=== PATIENT | male | born 1955 | race Caucasian/White ===

== ENCOUNTER → 2017-12-13 | Outpatient (REF) | payer BC ==
[2017-12-13 13:03] LABS: IMMUNOGLOBULIN G 924 MG/DL (681-1648); IMMUNOGLOBULIN M 68.4 MG/DL (40-230); TOTAL PROTEIN 7.3 GM/DL (6.4-8.2)
[2017-12-14 13:59] LABS: ALBUMIN % 61.4 % (55.8-66.1); ALPHA-1-GLOBULIN % 3.4 % (2.9-4.9); ALPHA-2-GLOBULINS % 8.5 % (7.1-11.8)
[2017-12-14 14:00] LABS: ALBUMIN 4.48 GM/DL (3.29-5.55); ALPHA-1-GLOBULINS 0.25 GM/DL (0.17-0.41); ALPHA-2-GLOBULINS 0.62 GM/DL (0.42-0.99); BETA-1-GLOBULINS 0.47 GM/DL (0.28-0.60); BETA-1-GLOBULINS % 6.4 % (4.7-7.2); BETA-2-GLOBULINS 0.47 GM/DL (0.19-0.55); BETA-2-GLOBULINS % 6.4 % (3.2-6.5); GAMMA GLOBULIN % 13.9 % (11.1-18.8); GAMMA GLOBULINS 1.01 GM/DL (0.65-1.58)
== END ==
LOC: M LAB REF 12:04
DX: R22.0 Localized swelling, mass and lump, head (principal)

== ENCOUNTER → 2017-12-21 | Outpatient (REF) | payer BC ==
[2017-12-21 12:56] LABS: BASO # 0.1 10^3/uL (0.0-0.2); BASO % 0.7 % (0.0-1.0); EOS # 0.2 10^3/uL (0.0-0.50); EOS % 1.8 % (0.0-3.0); HEMATOCRIT 42.1 % (42.0-52.0); HEMOGLOBIN 15.3 g/dl (14.0-18.0); IMMATURE GRANULOCYTE % 0.8 % (0-3.0); LYMPH # 2.2 10^3/uL (1.5-4.5); LYMPH % 23.1 % (24.0-44.0); MEAN CORPUSCULAR HEMOGLOBIN 34.9 pg (27.0-33.0); MEAN CORPUSCULAR HGB CONC 36.3 g/dl (32.0-36.5); MEAN CORPUSCULAR VOLUME 96.1 fl (80.0-96.0); MONO # 0.7 10^3/uL (0.0-0.8); MONO % 7.1 % (0.0-5.0); NEUTROPHILS # 6.4 10^3/uL (1.8-7.7); NEUTROPHILS % 66.5 % (36.0-66.0); PLATELET COUNT, AUTOMATED 213 10^3/uL (150-450); RED BLOOD COUNT 4.38 10^6/uL (4.30-6.10); RED CELL DISTRIBUTION WIDTH 11.9 % (11.5-14.5); WHITE BLOOD COUNT 9.6 10^3/uL (4.0-10.0)
[2017-12-21 13:34] LABS: ANION GAP 10 MEQ/L (8-16); BLOOD UREA NITROGEN 11 MG/DL (7-18); CALCIUM LEVEL 9.3 MG/DL (8.8-10.2); CARBON DIOXIDE LEVEL 28 MEQ/L (21-32); CHLORIDE LEVEL 103 MEQ/L (98-107); CREATININE FOR GFR 0.88 MG/DL (0.70-1.30); GLOMERULAR FILTRATION RATE > 60.0 (>49); GLUCOSE, FASTING 98 MG/DL (70-100); POTASSIUM SERUM 4.1 MEQ/L (3.5-5.1); SODIUM LEVEL 141 MEQ/L (136-145)
== END ==
LOC: M LABDRAW1 11:51
DX: Z01.812 Encounter for preprocedural laboratory examination (principal); G57.61 Lesion of plantar nerve, right lower limb; M79.671 Pain in right foot
CPT/HCPCS: 80048

== ENCOUNTER 2017-12-30 09:41 | Day surgery (SDC) | payer BC ==
[2017-12-30] MEDS: LR 1,000 ML IV (10:00)
[2017-12-30] MEDS: BUPIVACAINE HCL 0.5% 30 ML VIAL As Ordered (12:00)
[2017-12-30] MEDS: LIDOCAINE 2% MDV 20 ML VIAL As Ordered (12:00)
[2017-12-30] MEDS ORDERED: fentaNYL 100 MCG/2 ML INJECTION (J3010) As Ordered (12:10)
[2017-12-30] MEDS ORDERED: MIDAZOLAM INJ 2 MG/2 ML VIAL (J2250) As Ordered (12:10)
[2017-12-30] MEDS ORDERED: LIDOCAINE 2% INJ 100 MG/5 ML SDV (FOR ANES.) As Ordered (12:11)
[2017-12-30] MEDS ORDERED: PROPOFOL 200 MG/20 ML VIAL As Ordered ×3 (12:11)
[2017-12-30] MEDS: dexameTHASONE 4 MG/ML 1ML VIAL (J1100) As Ordered (12:16)
[2017-12-30] MEDS: BACITRACIN PWD 50,000 UNITS VIAL As Ordered (12:16)
[2017-12-30] MEDS: NEOSPORIN GU IRRIG 20 ML VIAL As Ordered (12:32)
[2017-12-30] MEDS ORDERED: ONDANSETRON 4MG/2ML VIAL (J2405) IV (13:00)
[2017-12-30] MEDS ORDERED: METOCLOPRAMIDE INJ 10MG/2ML VIAL (J2765) IV (13:00)
[2017-12-30] MEDS ORDERED: PERCOCET 5MG/325MG TAB PO (13:00)
[2017-12-30] MEDS ORDERED: fentaNYL 100 MCG/2 ML INJECTION (J3010) IV (13:00)
[2017-12-30] MEDS ORDERED: LR 1,000 ML IV (13:00)
== END 2017-12-30 13:55 | disposition home or self-care (01) ==
LOC: M SDC 09:41
DX: G57.61 Lesion of plantar nerve, right lower limb (principal); M79.671 Pain in right foot
CPT/HCPCS: 28080

== ENCOUNTER 2018-08-16 09:41 | Day surgery (SDC) | payer BC ==
[2018-08-16] MEDS: NS 1,000 ML IV (07:30)
[2018-08-16] MEDS ORDERED: LIDOCAINE 2% INJ 100 MG/5 ML SDV (FOR ANES.) As Ordered (10:41)
[2018-08-16] MEDS ORDERED: PROPOFOL 200 MG/20 ML VIAL As Ordered ×2 (10:41→12:02)
== END 2018-08-16 12:44 | disposition home or self-care (01) ==
LOC: M OPP 09:41
DX: K64.0 First degree hemorrhoids (principal); K63.5 Polyp of colon; Z79.899 Other long term (current) drug therapy
CPT/HCPCS: 45385

== ENCOUNTER 2019-07-29 19:12 | Emergency (ER) | payer BC ==
[~2019-07-29] VITALS: Ht 177.8 cm; Wt 109.1 kg
[~2019-07-29 19:12] MED LIST: AMBI5TAB PO; MELO15TA28 PO
[2019-07-29] MEDS ORDERED: ACET-683 PO (19:28)
[2019-07-29] MEDS ORDERED: METOCLOPRAMIDE INJ 10MG/2ML VIAL (J2765) IV ONE (20:00)
[2019-07-29] MEDS ORDERED: diphenhydrAMINE INJ 50MG/ML VIAL (J1200) IV STA (20:00)
[2019-07-29] MEDS ORDERED: NS 1,000 ML IV ONE (20:00)
[2019-07-29 20:14] LABS: BASO # 0.1 10^3/uL (0.0-0.2); BASO % 0.8 % (0.0-1.0); EOS # 0.2 10^3/uL (0.0-0.5); EOS % 2.1 % (0.0-3.0); HEMATOCRIT 44.7 % (42.0-52.0); HEMOGLOBIN 16.6 g/dl (13.5-17.5); LYMPH # 2.3 10^3/uL (1.5-5.0); MEAN CORPUSCULAR HEMOGLOBIN 34.9 pg (27.0-33.0); MEAN CORPUSCULAR HGB CONC 37.1 g/dl (32.0-36.5); MEAN CORPUSCULAR VOLUME 93.9 fl (80.0-96.0); MONO # 0.5 10^3/uL (0.0-0.8); MONO % 5.2 % (0.0-5.0); NEUTROPHILS # 6.4 10^3/uL (1.5-8.5); NEUTROPHILS % 67.6 % (36.0-66.0); PLATELET COUNT, AUTOMATED 193 10^3/uL (150-450); RED BLOOD COUNT 4.76 10^6/uL (4.30-6.10); WHITE BLOOD COUNT 9.4 10^3/uL (4.0-10.0)
--- NOTE | 2019-07-29 20:19 | REPVR ---
PROCEDURE INFORMATION: Exam: CT Head Without Contrast Exam date and time: 07/29/2019 7:27 PM Clinical history: 63 years old, male; Pain; Headache; Additional info: Severe headache TECHNIQUE: Imaging protocol: Computed tomography of the head without contrast. Radiation optimization: All CT scans at this facility use at least one of these dose optimization techniques: automated exposure control; mA and/or kV adjustment per patient size (includes targeted exams where dose is matched to clinical indication); or iterative reconstruction. COMPARISON: No relevant prior studies available. FINDINGS: Brain: Diffuse mild cerebral age related volume loss. Mild patchy low attenuation in the white matter compatible with mild chronic small vessel ischemic disease. No midline shift, mass, fluid collection, or evidence of hemorrhage. Ventricles: Ventricular enlargement proportional to volume loss. Bones/joints: Unremarkable. No acute fracture. Sinuses: Visualized sinuses are unremarkable. No fluid levels. Mastoid air cells: Visualized mastoid air cells are well aerated. Soft tissues: Unremarkable. IMPRESSION: Mild involutional changes, no acute intracranial abnormality. Electronically signed by: Derrick Arita On 07/29/2019 20:19:27 PM
[2019-07-29 20:31] LABS: ACETAMINOPHEN LEVEL < 2.0 UG/ML (10.0-30.0); ALBUMIN 3.8 GM/DL (3.2-5.2); ALT/SGPT 65 U/L (12-78); BILIRUBIN,DIRECT 0.2 MG/DL (0.0-0.2); BILIRUBIN,TOTAL 0.8 MG/DL (0.2-1.0); BLOOD UREA NITROGEN 15 MG/DL (7-18); CALCIUM LEVEL 8.4 MG/DL (8.8-10.2); CARBON DIOXIDE LEVEL 26 MEQ/L (21-32); CHLORIDE LEVEL 107 MEQ/L (98-107); CK-MB VALUE MASS 3.1 NG/ML (<3.6); CPK CREATINE PHOSPHOKINASE 594 U/L (39-308); CREATININE FOR GFR 0.96 MG/DL (0.70-1.30); ETHYL ALCOHOL (ETHANOL) < 0.003 % (0.000-0.010); GLOMERULAR FILTRATION RATE > 60.0 (>49); GLUCOSE, FASTING 129 MG/DL (70-100); MAGNESIUM LEVEL 2.1 MG/DL (1.8-2.4); MB/CK RELATIVE INDEX 0.52 (< OR =4); POTASSIUM SERUM 3.4 MEQ/L (3.5-5.1); SALICYLATE LEVEL < 1.7 MG/DL (5.0-30.0); SODIUM LEVEL 141 MEQ/L (136-145); TOTAL PROTEIN 7.3 GM/DL (6.4-8.2); TROPONIN I < 0.02 NG/ML (< 0.10)
[2019-07-29] MEDS ORDERED: KETOROLAC 30 MG/ML VIAL (J1885) IV ONE (20:45)
[2019-07-29 22:45] VITALS: BP 172/93
[2019-07-29] MEDS ORDERED: REGL10TA6 PO (22:45)
--- NOTE | 2019-07-30 05:44 | ECGEPIP ---
[facility] - ED Test Date: 2019-07-29 Pat Name: KENDALL MARTINEZ Department: Room: - Gender: Male Home Health Scheduler: : 1955 Requested By: CLYDE NEGRETE Order Number: [id number] Reading MD: Terrell Brewster Measurements Intervals Robinson Rate: 63 P: 44 HI: 108 QRS: -13 QRSD: 92 T: 43 QT: 421 QTc: 433 Interpretive Statements SINUS RHYTHM WITH SHORT HI INTERVAL NONSPECIFIC T-WAVE ABNORMALITY BASELINE ARTIFACT AFFECTS INTERPRETATION SIMILAR TO 08/10/17 Electronically Signed on 07-30-2019 5:44:24 EDT by Terrell Brewster
--- NOTE | 2019-07-30 17:21 | REP ---
Clinical: Altered mental status . Comparison: None . Findings: The mediastinum and cardiac silhouette are stable and within normal limits for portable technique. The lung tee are clear without acute consolidation, effusion, or pneumothorax. Skeletal structures are intact. Impression: No acute cardiopulmonary process appreciated. Electronically Signed by Warren Jay MD 07/30/2019 05:12 P
== END 2019-07-29 23:15 | disposition home or self-care (01) ==
LOC: M ED 19:12
DX: G43.909 Migraine, unspecified, not intractable, without status migrainosus (principal); M62.82 Rhabdomyolysis
CPT/HCPCS: 70450; 71045; 80048; 80076; 82550; 82553; 83735; 84443; 84484; 85025; 93005; 93041; 94760; 96361; 96374; 96375; 99285; G0480; J1200; J1885; J2765

== ENCOUNTER → 2019-08-08 | Outpatient (CLI) | payer BC ==
[~2019-08-08] MED LIST changes: +ACET-683 PO; +PROHANCE 279.3MG/ML 15ML VIAL (A9576) As Ordered ONE; +PROHANCE 279.3MG/ML 5ML VIAL (A9576) As Ordered ONE; +REGL10TA6 PO
--- NOTE | 2019-08-08 15:42 | REP ---
MRI brain: 08/08/2019. Indication: Vertigo. Comparison: None. Technique: Multiplanar short and long TR sequences of the brain were obtained including post-gadolinium imaging. 20 ml IV ProHance were administered. Findings: There are no areas of restricted diffusion or pathologic gadolinium enhancement. There is no intracranial mass effect or hydrocephalous. Minimal diffuse volume loss is noted. The large intracranial flow voids are present. There are a few small foci of elevated CT prolongation throughout the cerebral hemisphere white matter which are within normal limits for a patient of this age. Impression: No acute intracranial process. Electronically Signed by Justin Roldan DO 08/08/2019 03:33 P
--- NOTE | 2019-08-08 16:06 | REP ---
Intracranial MRA: 08/08/2019. Indication: Vertigo. New new Comparison: None. Technique: 3-D [id number] imaging of the intracranial circulation was performed with rotational 3-D images provided. Findings: There is no intracranial high-grade stenosis, vessel occlusion, aneurysm or AVM. The vertebral arteries are essentially codominant. Impression: No high-grade stenosis or vessel occlusion. Electronically Signed by Justin Roldan DO 08/08/2019 03:57 P
== END ==
LOC: M RAD 13:04
PROVIDERS: ATTEND Internal Medicine
DX: R42 Dizziness and giddiness (principal); R26.81 Unsteadiness on feet
CPT/HCPCS: 70544; 70553; A9576

== ENCOUNTER → 2019-11-07 | Outpatient (REF) | payer BC ==
[~2019-11-07] MED LIST changes: -PROHANCE 279.3MG/ML 15ML VIAL (A9576) As Ordered ONE; -PROHANCE 279.3MG/ML 5ML VIAL (A9576) As Ordered ONE
[2019-11-07 15:59] LABS: BASO # 0.1 10^3/uL (0.0-0.2); BASO % 0.8 % (0.0-1.0); EOS # 0.2 10^3/uL (0.0-0.5); EOS % 1.7 % (0.0-3.0); HEMATOCRIT 46.6 % (42.0-52.0); HEMOGLOBIN 16.6 g/dl (13.5-17.5); LYMPH # 3.1 10^3/uL (1.5-5.0); LYMPH % 29.5 % (24.0-44.0); MEAN CORPUSCULAR HEMOGLOBIN 34.5 pg (27.0-33.0); MEAN CORPUSCULAR HGB CONC 35.6 g/dl (32.0-36.5); MEAN CORPUSCULAR VOLUME 96.9 fl (80.0-96.0); MONO # 0.7 10^3/uL (0.0-0.8); MONO % 6.5 % (0.0-5.0); NEUTROPHILS # 6.3 10^3/uL (1.5-8.5); NEUTROPHILS % 60.3 % (36.0-66.0); PLATELET COUNT, AUTOMATED 215 10^3/uL (150-450); RED BLOOD COUNT 4.81 10^6/uL (4.30-6.10); WHITE BLOOD COUNT 10.5 10^3/uL (4.0-10.0)
[2019-11-07 16:02] LABS: CREATININE FOR GFR 0.98 MG/DL (0.70-1.30); GLOMERULAR FILTRATION RATE > 60.0 (>49); RHEUMATOID FACTOR QUANT < 10.0 IU/ML (<15.0)
[2019-11-07 16:32] LABS: ERYTHROCYTE SEDIMENTATION RATE 3 mm/hr (0-20)
[2019-11-10 00:07] LABS: ANTI DOUBLE STRAND-DNA AB 1 IU/mL (0-9); ANTINUCLEAR ANTIBODIES DIRECT Positive (Negative); Lyme Disease IgG/IgM Antibodie <0.91 ISR (0.00-0.90); Lyme Disease IgM Ab Quantitati <0.80 index (0.00-0.79); SJOGREN'S ANTI SS-A <0.2 AI (0.0-0.9); SJOGREN'S ANTI SS-B <0.2 AI (0.0-0.9); SMITH ANTIBODIES <0.2 AI (0.0-0.9)
== END ==
LOC: M LABDRAW1 15:28
PROVIDERS: ATTEND Orthopaedic Surgery
DX: M65.322 Trigger finger, left index finger (principal)

== ENCOUNTER → 2019-11-17 | Outpatient (CLI) | payer BC ==
--- NOTE | 2019-11-20 08:40 | REP ---
MRI right thumb without contrast: History: Rule out ligament injury. Right hand pain. The patient reports pain in the thumb. No comparison radiographs. Technique: Axial, coronal and sagittal imaging planes were utilized. T1 and T2-weighted scans were obtained in the usual fashion with and without fat saturation. MRI findings: Cortical and medullary bone signal intensity are normal in the first metacarpal and proximal and distal phalanges on T1 and T2-weighted scans. There is moderate to advanced osteoarthritis at the MCP joint with minimal spurring at the IP joint. There is also minimal spurring at the DETENTION joint of the thumb. There appears to be some fragmented spurring at the MCP joint with diffuse joint space narrowing. There is no evidence of tendinopathy or collateral ligament disruption. No vascular abnormality is seen. No soft tissue mass or cyst is observed. 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 Electronically Signed by Demetri Morel MD 11/20/2019 07:55 P
== END ==
LOC: M RAD 09:57
PROVIDERS: ATTEND Orthopaedic Surgery
DX: M25.541 Pain in joints of right hand (principal); M19.041 Primary osteoarthritis, right hand; M77.9 Enthesopathy, unspecified

== ENCOUNTER → 2019-12-13 | Outpatient (CLI) | payer BC | LOC: M OUTALCOH 07:58 | PROVIDERS: ATTEND Psychiatry & Neurology Addiction Medicine | DX: Z13.39 Encounter for screening examination for other mental health and behavioral disorders (principal); F10.20 Alcohol dependence, uncomplicated ==

== ENCOUNTER → 2020-01-08 | Outpatient (RCR) | payer BC | LOC: M OUTALCOH 12-18 08:33 | PROVIDERS: ATTEND Psychiatry & Neurology Addiction Medicine | DX: F10.20 Alcohol dependence, uncomplicated (principal) ==

== ENCOUNTER 2020-02-06 13:54 | Outpatient (RCR) | payer BC | END 2020-02-07 | LOC: M OUTALCOH 13:54 | PROVIDERS: ATTEND Psychiatry & Neurology Addiction Medicine | DX: F10.20 Alcohol dependence, uncomplicated (principal) ==

== ENCOUNTER 2020-03-05 14:15 | Outpatient (RCR) | payer BC | END 2020-03-09 | LOC: M OUTALCOH 14:15 | PROVIDERS: ATTEND Psychiatry & Neurology Addiction Medicine | DX: F10.20 Alcohol dependence, uncomplicated (principal) ==

== ENCOUNTER → 2020-03-21 | Outpatient (CLI) | payer BC ==
--- NOTE | 2020-03-21 14:02 | REP ---
REASON FOR EXAM: Cough. COMPARISON: 07/29/2019 a portable exam. FINDINGS: The superior mediastinal structures are midline. The cardiac silhouette is unremarkable in size, shape, and position. The diaphragmatic surfaces of the lungs are regular, and the costophrenic angles are clear. The pulmonary tee are clear. The imaged osseous structures are intact. IMPRESSION: There is no acute cardiopulmonary disease. No significant change compared to the prior exam. Electronically Signed by Glenn Martinez DO 03/21/2020 03:06 P
== END ==
LOC: M WUC 11:32
PROVIDERS: ATTEND Internal Medicine
DX: R05 Cough (principal)

== ENCOUNTER 2020-04-07 08:00 | Outpatient (RCR) | payer BC | END 2020-04-08 | LOC: M OUTALCOH 08:00 | PROVIDERS: ATTEND Psychiatry & Neurology Addiction Medicine | DX: F10.20 Alcohol dependence, uncomplicated (principal) ==

== ENCOUNTER 2020-05-05 16:00 | Outpatient (RCR) | payer BC | END 2020-05-09 | LOC: M OUTALCOH 16:00 | PROVIDERS: ATTEND Psychiatry & Neurology Addiction Medicine | DX: F10.20 Alcohol dependence, uncomplicated (principal) ==

== ENCOUNTER → 2020-06-09 | Outpatient (RCR) | payer BC ==
[~2020-06-09] MED LIST changes: +GABA-1171 PO; +TAMS1CAP17 PO
== END ==
LOC: M OUTALCOH 05-12 08:00
PROVIDERS: ATTEND Psychiatry & Neurology Addiction Medicine
DX: F10.20 Alcohol dependence, uncomplicated (principal)

== ENCOUNTER 2020-07-07 08:00 | Outpatient (RCR) | payer BC ==
[~2020-07-07 08:00] MED LIST changes: -GABA-1171 PO; -TAMS1CAP17 PO
== END 2020-07-09 ==
LOC: M OUTALCOH 08:00
PROVIDERS: ATTEND Psychiatry & Neurology Addiction Medicine
DX: F10.20 Alcohol dependence, uncomplicated (principal)

== ENCOUNTER 2020-07-28 08:00 | Outpatient (RCR) | payer BC ==
[2020-08-01] MEDS ORDERED: GABA-1171 PO (13:53)
[2020-08-01] MEDS ORDERED: TAMS1CAP17 PO (13:53)
== END 2020-08-09 ==
LOC: M OUTALCOH 08:00
PROVIDERS: ATTEND Psychiatry & Neurology Addiction Medicine
DX: F10.20 Alcohol dependence, uncomplicated (principal)

== ENCOUNTER → 2020-07-30 | Outpatient (CLI) | payer BC ==
[~2020-07-30] MED LIST changes: +GABA-1171 PO; +TAMS1CAP17 PO
[2020-07-30 11:17] LABS: BASO % 0.5 % (0.0-1.0); EOS # 0.2 10^3/uL (0.0-0.5); EOS % 3.1 % (0.0-3.0); HEMOGLOBIN 14.7 g/dl (13.5-17.5); LYMPH # 2.3 10^3/uL (1.5-5.0); LYMPH % 30.3 % (24.0-44.0); MEAN CORPUSCULAR HEMOGLOBIN 30.2 pg (27.0-33.0); MEAN CORPUSCULAR HGB CONC 34.2 g/dl (32.0-36.5); MEAN CORPUSCULAR VOLUME 88.3 fl (80.0-96.0); MONO # 0.4 10^3/uL (0.0-0.8); MONO % 5.9 % (0.0-5.0); NEUTROPHILS # 4.5 10^3/uL (1.5-8.5); NEUTROPHILS % 59.7 % (36.0-66.0); PLATELET COUNT, AUTOMATED 222 10^3/uL (150-450); RED BLOOD COUNT 4.87 10^6/uL (4.30-6.10); WHITE BLOOD COUNT 7.5 10^3/uL (4.0-10.0)
[2020-07-30 11:47] LABS: BLOOD UREA NITROGEN 13 MG/DL (7-18); CALCIUM LEVEL 9.6 MG/DL (8.8-10.2); CARBON DIOXIDE LEVEL 26 MEQ/L (21-32); CHLORIDE LEVEL 107 MEQ/L (98-107); CREATININE FOR GFR 0.92 MG/DL (0.70-1.30); GLOMERULAR FILTRATION RATE > 60.0 (>49); GLUCOSE, FASTING 110 MG/DL (70-100); POTASSIUM SERUM 4.1 MEQ/L (3.5-5.1); SODIUM LEVEL 139 MEQ/L (136-145)
== END ==
LOC: M LAB 09:13
PROVIDERS: ATTEND Podiatrist
DX: M20.41 Other hammer toe(s) (acquired), right foot (principal)

== ENCOUNTER → 2020-08-03 | Outpatient (CLI) | payer BC | LOC: M LABSMTC 09:25 | PROVIDERS: ATTEND Anesthesiology | DX: Z01.812 Encounter for preprocedural laboratory examination (principal); Z20.828 Contact with and (suspected) exposure to other viral communicable diseases | CPT/HCPCS: C9803; U0003 ==

== ENCOUNTER 2020-08-08 09:09 | Day surgery (SDC) | payer BC ==
[~2020-08-08] VITALS: Ht 177.8 cm; Wt 97.5 kg
[~2020-08-08 09:09] MED LIST changes: +LIDOCAINE 1% MDV 20ML VIAL SQ PRN; +LIDOCAINE 2% 100MG/5ML SDV (FOR ANES.) As Ordered ONE; +LR 1,000 ML IV ONE; +MIDAZOLAM INJ 2MG/2ML VIAL (J2250 PER 1MG) As Ordered ONE; +ONDANSETRON 4MG/2ML VIAL As Ordered ONE; +ceFAZolin SOD 2 GM in IV 1 EA IV ONE; +fentaNYL 100 MCG/2 ML INJECTION (J3010) As Ordered ONE; +propofoL 200 MG/20 ML VIAL As Ordered ONE
[2020-08-08] MEDS ORDERED: LIDOCAINE 2% MDV 20ML VIAL As Ordered ONE (10:30)
[2020-08-08] MEDS ORDERED: BUPIVACAINE HCL 0.5% 10ML VIAL As Ordered ONE (10:30)
[2020-08-08] MEDS ORDERED: dexameTHASONE 4 MG/ML 1ML VIAL (J1100 PER 1MG) As Ordered ONE (10:30)
[2020-08-08] MEDS ORDERED: BACITRACIN PWD 50,000 UNITS VIAL As Ordered ONE (10:30)
[2020-08-08] MEDS ORDERED: NEOSPORIN GU IRRIG 20 ML VIAL As Ordered ONE (10:30)
[2020-08-08] MEDS ORDERED: propofoL 200 MG/20 ML VIAL As Ordered ONE (11:53)
--- NOTE | 2020-08-08 12:42 | REP ---
INDICATION: S/P PROXIMAL INTERPHALANGEAL JOINT ARTHROSCOPY. COMPARISON: None. FINDINGS: There has been previous bunionectomy and 1st metatarsal derotational osteotomy. Derotational osteotomy is also seen involving the 2nd metatarsal. There is K-wire fixation of the 2nd digit with excision of the distal metaphysis of the proximal phalanx of the 2nd digit. Neither of the screws breach the joint space. Alignment is near anatomical. IMPRESSION: Postoperative changes as described above. <Electronically signed by Glenn Martinez > 08/08/20 [id number]
[2020-08-08 12:50] VITALS: BP 123/72
--- NOTE | 2020-08-12 15:19 | RO ---
DATE OF OPERATION: 08/08/2020 PREOPERATIVE DIAGNOSIS: Unstable plantar plate, 2nd metatarsophalangeal joint right foot. POSTOPERATIVE DIAGNOSIS: Unstable plantar plate, 2nd metatarsophalangeal joint right foot. PROCEDURE PERFORMED: 1. Proximal interphalangeal joint arthroplasty with external wire fixation 0.045 x1 2nd toe right foot. 2. Shortening 2nd metatarsal osteotomy and internal screw fixation 2.0 x 13 mm right foot. 3. Repair of plantar plate 2nd metatarsophalangeal joint right foot. SURGEON: Mayo Guo DPM CLEANING SUPERVISOR: None. ANESTHESIA: Local, MAC. IRRIGATION: Bacitracin, Neomycin, and Polymyxin B solution. HEMOSTASIS: Ankle pneumatic tourniquet at 225 mmHg for 59 minutes. HARDWARE UTILIZED: Arthrex Snap-Off 2.0 x 13 mm screw. DESCRIPTION OF OPERATION: On 08/08/2020 this 64-year-old male who was taken from hospital room to operating room and placed on the operating table in supine position. Following induction of IV sedation and local regional anesthesia the right lower extremity was prepped and draped in usual aseptic manner. Attention was directed to the patients 2nd toe. There was noted to be a hammertoe deformity present of the 2nd toe as well as unstable plantar plate of the 2nd metatarsophalangeal joint. At this time a curvilinear incision was placed from the midshaft of the 2nd metatarsal, curving around the 2nd metatarsophalangeal joint ending at the proximal interphalangeal joint of the 2nd toe. The incision was deepened through subcutaneous tissues and all crossing venous tributaries were identified and underscored, clamped, cut, ligated, and electrocoagulated as necessary. Transverse tenotomy and capsulotomy was performed at the level of the proximal interphalangeal joint and the extensor expansion jauregui was released along the 2nd metatarsophalangeal joint. Transverse capsulotomy was performed of level of proximal interphalangeal joint and then medial and lateral collateral ligaments were sharply dissected free from the head of the proximal phalanx. Utilizing a power saw an osteotomy was performed just proximal to the articular cartilage of the proximal phalanx and the cartilage was also resected off the base of the middle phalanx. The wound was flushed with copious amount of dilute Bacitracin, Neomycin, Polymyxin B solution. Attention was directed to the patients 2nd toe where transverse tenotomy and capsulotomy were performed from level of the 2nd metatarsophalangeal joint. Plantar plate was released, Inspection of the plantar plate revealed partial tear through the lateral aspect of the 2nd metatarsophalangeal joint plantar plate. This plate was then completely excised and freed for reattachment to the base of the proximal phalanx. Utilizing a file the plantar aspect of the proximal phalanx was scuffed to allow adhesion of the plantar plate. Utilizing a Scorpion needle reach lift truck driver the plantar plate had two passes with #2 FiberWire. Utilizing a 1.6 mm wire tunnels were created through the proximal phalanx. An osteotomy was then performed at the 2nd metatarsal paralleling the plantar surface of the foot. The 2nd metatarsal was shortened allowing complete exposure now to the plantar plate where plantar plate could be completely freed to allow attachment. The 4 mm of dorsal bone was then excised and the 2nd metatarsal was shortened and then fixated with 2.0 x 13 mm Snap-Off screw with good alignment of the 2nd metatarsal. The toe was then plantarflexed and the suture was retrieved through the osseous tunnels and the toe was sutured in plantarflexed position to allow tightening of the plantar plate. This was then cut. The wound was flushed with copious amounts of dilute Bacitracin, Neomycin, and Polymyxin B solution. The capsule was coapted and maintained with 2-0 Monocryl in simple interrupted type fashion. Subcutaneous tissues were coapted and maintained utilizing 3-0 Monocryl in simple interrupted type fashion. Skin incisions were coapted and maintained using 4-0 Prolene in simple interrupted type fashion. Following the completion well proximal to the surgical site 4 mg dexamethasone sodium phosphate was instilled along the proximal aspect of the foot. Attention was directed toward bandaging. A sterile compressive bandage was applied consisting of Adaptic, 4 x 4's, 4 x 4 splint, Kenny and Kerlix and Coban. The toe was maintained in a plantarflexed position. Ankle pneumatic tourniquet was rapidly deflated and instantaneous capillary filling time was noted to digits 1-5 of the patient's right foot. The patient, having apparently tolerated the surgical procedure well, was taken from the OR to the recovery room for further monitoring by the anesthesia department. Postoperative instructions were given upon discharge. IZAIAH
== END 2020-08-08 12:58 | disposition home or self-care (01) ==
LOC: M SDC 09:09
PROVIDERS: ATTEND Podiatrist
DX: M20.41 Other hammer toe(s) (acquired), right foot (principal); M20.5X1 Other deformities of toe(s) (acquired), right foot; M77.41 Metatarsalgia, right foot; M79.671 Pain in right foot; N40.0 Benign prostatic hyperplasia without lower urinary tract symptoms; Z79.899 Other long term (current) drug therapy
CPT/HCPCS: 28285; 28308; 28313; 73630; 88300; C1713; J0690; J1100; J2250; J2405; J3010

== ENCOUNTER 2020-09-01 08:00 | Outpatient (RCR) | payer BC ==
[~2020-09-01 08:00] MED LIST changes: -LIDOCAINE 1% MDV 20ML VIAL SQ PRN; -LIDOCAINE 2% 100MG/5ML SDV (FOR ANES.) As Ordered ONE; -LR 1,000 ML IV ONE; -MIDAZOLAM INJ 2MG/2ML VIAL (J2250 PER 1MG) As Ordered ONE; -ONDANSETRON 4MG/2ML VIAL As Ordered ONE; -ceFAZolin SOD 2 GM in IV 1 EA IV ONE; -fentaNYL 100 MCG/2 ML INJECTION (J3010) As Ordered ONE; -propofoL 200 MG/20 ML VIAL As Ordered ONE
== END 2020-09-08 ==
LOC: M OUTALCOH 08:00
PROVIDERS: ATTEND Psychiatry & Neurology Addiction Medicine
DX: F10.20 Alcohol dependence, uncomplicated (principal)

== ENCOUNTER 2020-09-29 08:00 | Outpatient (RCR) | payer BC | END 2020-10-09 | LOC: M OUTALCOH 08:00 | PROVIDERS: ATTEND Psychiatry & Neurology Addiction Medicine | DX: F10.20 Alcohol dependence, uncomplicated (principal) ==

== ENCOUNTER 2020-10-27 08:00 | Outpatient (RCR) | payer BC | END 2020-11-09 | LOC: M OUTALCOH 08:00 | PROVIDERS: ATTEND Psychiatry & Neurology Addiction Medicine | DX: F10.20 Alcohol dependence, uncomplicated (principal) ==

== ENCOUNTER → 2020-11-13 | Outpatient (CLI) | payer BC ==
[~2020-11-13] MED LIST changes: +ISOVUE-370 76% 100ML VIAL As Ordered ONE
--- NOTE | 2020-11-13 10:43 | REPVR ---
PROCEDURE INFORMATION: Exam: CT Neck With Contrast Exam date and time: 11/13/2020 10:15 AM Age: 65 years old Clinical indication: Condition or disease; Other: Benign neoplasm of lower jaw bone; Prior surgery; Surgery date: 6+ months; Additional info: Benign neoplasm of lower jaw bone/ labs 1st TECHNIQUE: Imaging protocol: Computed tomography images of the neck with intravenous contrast. Radiation optimization: All CT scans at this facility use at least one of these dose optimization techniques: automated exposure control; mA and/or kV adjustment per patient size (includes targeted exams where dose is matched to clinical indication); or iterative reconstruction. Contrast material: ISOVUE 370; Contrast volume: 75 ml; Contrast route: INTRAVENOUS (IV); COMPARISON: No relevant prior studies available. FINDINGS: Paranasal sinuses: A small amount of mucous membrane thickening seen anteriorly within the right maxillary sinus. Nasopharynx: Unremarkable. Oropharynx: Unremarkable. No significant tonsillar enlargement. Hypopharynx: Unremarkable. Larynx: Unremarkable. Normal epiglottis. Retropharyngeal space: Unremarkable. Submandibular/Parotid glands: Normal. Glands are normal in size. Thyroid: Normal. No enlarged or calcified nodules. Lymph nodes: Subcentimeter lymph nodes are identified not enlarged per size criteria. Trachea: Visualized trachea is unremarkable. Lungs: Unremarkable as visualized. Bones/joints: Unremarkable. No acute fracture. Soft tissues: There is a defect noted involving the outer cortex of the left side of the mandible measuring 19 x 7 mm. There is no mass seen in this region. The there are droplets of air noted within the postoperative bed. The patient had surgery per the technologist on the jaw. IMPRESSION: Postoperative left side of the mandible with soft tissue air in the postoperative bed. Electronically signed by: Nicola Arias On 11/13/2020 10:43:20 AM
[2020-11-13 10:49] LABS: BLOOD UREA NITROGEN 14 MG/DL (7-18); CREATININE FOR GFR 1.06 MG/DL (0.70-1.30); GLOMERULAR FILTRATION RATE > 60.0 (>49)
== END ==
LOC: M LAB 09:31
DX: D16.5 Benign neoplasm of lower jaw bone (principal); Z98.890 Other specified postprocedural states
CPT/HCPCS: 36415; 70491; 82565; 84520; Q9967

== ENCOUNTER 2020-12-01 08:00 | Outpatient (RCR) | payer BC ==
[~2020-12-01 08:00] MED LIST changes: -ISOVUE-370 76% 100ML VIAL As Ordered ONE
== END 2020-12-07 ==
LOC: M OUTALCOH 08:00
PROVIDERS: ATTEND Psychiatry & Neurology Psychiatry
DX: F10.20 Alcohol dependence, uncomplicated (principal)

== ENCOUNTER 2021-01-05 13:00 | Outpatient (RCR) | payer BC | END 2021-01-07 | LOC: M OUTALCOH 13:00 | PROVIDERS: ATTEND Psychiatry & Neurology Psychiatry | DX: F10.20 Alcohol dependence, uncomplicated (principal) ==

== ENCOUNTER 2021-02-09 08:01 | Outpatient (RCR) | payer BC | END 2021-03-09 | LOC: M OUTALCOH 08:01 | PROVIDERS: ATTEND Psychiatry & Neurology Psychiatry | DX: F10.20 Alcohol dependence, uncomplicated (principal) ==

== ENCOUNTER 2021-03-16 14:57 | Outpatient (RCR) | payer BC | END 2021-04-08 | LOC: M OUTALCOH 14:57 | PROVIDERS: ATTEND Psychiatry & Neurology Psychiatry | DX: F10.20 Alcohol dependence, uncomplicated (principal) ==

== ENCOUNTER → 2021-04-15 | Outpatient (REF) | payer BC ==
[2021-04-15 17:23] LABS: APPEARANCE, URINE CLEAR (CLEAR); BACTERIA, URINE AUTO NEGATIVE (NEGATIVE); BILIRUBIN, URINE AUTO NEGATIVE (NEGATIVE); BLOOD, URINE BLOOD NEGATIVE (NEGATIVE); COLOR, URINE YELLOW (YELLOW); GLUCOSE, URINE (UA) AUTO NEGATIVE (NEGATIVE); KETONE, URINE AUTO NEGATIVE (NEGATIVE); LEUKOCYTE ESTERASE, URINE AUTO NEGATIVE (NEGATIVE); NITRITE, URINE AUTO NEGATIVE (NEGATIVE); PROTEIN, URINE AUTO NEGATIVE (NEGATIVE); RBC, URINE AUTO 0 /HPF (0-3); SPECIFIC GRAVITY URINE AUTO 1.006 (1.002-1.035); SQUAMOUS EPITHELIAL CELL UR AU 0 /HPF (0-6); UROBILINOGEN, URINE AUTO 0.2 mg/dL (0.0-2.0); WBC, URINE AUTO 0 /HPF (0-3)
== END ==
LOC: M SMT 17:04
PROVIDERS: ATTEND Nurse Practitioner Family
DX: R35.1 Nocturia (principal)

== ENCOUNTER 2021-04-20 08:00 | Outpatient (RCR) | payer BC | END 2021-05-09 | LOC: M OUTALCOH 08:00 | PROVIDERS: ATTEND Psychiatry & Neurology Psychiatry | DX: F10.20 Alcohol dependence, uncomplicated (principal) ==

== ENCOUNTER 2021-05-25 15:06 | Outpatient (RCR) | payer BC | END 2021-06-09 | LOC: M OUTALCOH 15:06 | PROVIDERS: ATTEND Psychiatry & Neurology Psychiatry | DX: F10.20 Alcohol dependence, uncomplicated (principal) ==

== ENCOUNTER 2021-07-01 13:30 | Outpatient (RCR) | payer BC | END 2021-07-09 | LOC: M OUTALCOH 13:30 | PROVIDERS: ATTEND Psychiatry & Neurology Psychiatry | DX: F10.20 Alcohol dependence, uncomplicated (principal) ==

== ENCOUNTER → 2021-07-22 | Outpatient (REF) | payer BC | LOC: M LAB REF 11:17 | PROVIDERS: ATTEND Internal Medicine | DX: N40.1 Benign prostatic hyperplasia with lower urinary tract symptoms (principal) ==

== ENCOUNTER → 2021-07-24 | Outpatient (CLI) | payer BC | LOC: M LABSMTC 10:45 | PROVIDERS: ATTEND Anesthesiology | DX: Z01.812 Encounter for preprocedural laboratory examination (principal); Z20.822 Contact with and (suspected) exposure to COVID-19 ==

== ENCOUNTER → 2021-07-24 | Outpatient (CLI) | payer BC ==
--- NOTE | 2021-07-24 11:34 | REP ---
INDICATION: BLADDER TUMOR COMPARISON: 03/21/2020 TECHNIQUE: PA and lateral. FINDINGS: The mediastinum and cardiac silhouette are normal. The lung tee are clear and without acute consolidation, effusion, or pneumothorax. The skeletal structures are intact and normal. IMPRESSION: No acute cardiopulmonary process. <Electronically signed by Warren Jay > 07/24/21 [id number]
== END ==
LOC: M WUC 11:01
PROVIDERS: ATTEND Urology
DX: D49.4 Neoplasm of unspecified behavior of bladder (principal)

== ENCOUNTER 2021-07-29 09:34 | Day surgery (SDC) | payer BC ==
[~2021-07-29] VITALS: Ht 177.8 cm; Wt 93.8 kg
[~2021-07-29 09:34] MED LIST changes: +CIPROFLOXACIN 400 MG in IV 1 EA IV ONE; +LIDOCAINE 2% 100MG/5ML SDV (FOR ANES.) As Ordered ONE; +LR 1,000 ML IV ONE; +MIDAZOLAM INJ 2MG/2ML VIAL (J2250 PER 1MG) As Ordered ONE; +ROCURONIUM BROMIDE 50 MG/5 ML VIAL As Ordered ONE; +fentaNYL 100 MCG/2 ML INJECTION (J3010) As Ordered ONE; +propofoL 200 MG/20 ML VIAL As Ordered ONE
--- OUTSIDE RECORDS SUMMARY | 2021-07-29 09:42 | CCD ---
Author Author [facility] Organization [facility] Address Unknown Phone Unavailable Care Team Providers Care Child Monitor Name Role Phone BeckwithShane montoya Unavailable PROBLEMS Type Condition ICD9-CM Code [id number] Code Onset Dates Condition S tatus W/U Status Risk SNOMED Code Notes Problem Benign prostatic hyperplasia without lower urina ry tract symptoms N40.0 Active confirmed 499414528 Problem Benign prostatic hyperplasia with lower urinary tract symptoms N40.1 Active confirmed 6181797540069 Problem Prostate cancer screening Z12.5 Active confirmed 864127226 Problem Nocturia R35.1 Active confirmed [id number] ALLERGIES No Known Allergies ENCOUNTERS from 1955 to 2021-06-30 Encounter Location Date Provider Diagnosis [facility] [address] [phone] [place] [address] Jun, Shane Beckwith Bladder tumor D49.4 ; Nocturia R35.1 and Benign prostatic hyperplasia with lower urinary tract symptoms N40.1 IMMUNIZATIONS No Information SOCIAL HISTORY Tobacco Use: Social History Observation Description Date Details (start date - stop date) Sex Assigned At : Social History Observation Description Sex Assigned At Unknown Language: Question Answer Notes Languages spoken: Tajik Samaritan: Question Answer Notes Samaritan No anabaptist beliefs that would impact health care. Alcohol Screening: Question Answer Notes Did you have a drink containing alcohol in the past year? Ye s Points 3 Interpretation Negative How often did you have six or more drinks on one occas ion in the past year? Never (0 points) How many drinks did you have on a typica l day when you were drinking in the past year? 3 or 4 (1 point) How often did you have a drink containing alcohol in t he past year? Two to four times a month (2 points) Tobacco Use: Question Answer Notes Are you a: never smoker REASON FOR REFERRAL No Information VITAL SIGNS Weight 205 lbs Jun, Height 70 in Jun, BMI 29.41 kg/m2 Jun, Heart Rate 60 /min Jun, Respiratory Rate 18 /min Jun, Temperature 96.1 degrees Fahrenheit Jun, Oximetry 98 Jun, Blood pressure systolic 138 mm Hg Jun, Blood pressure diastolic 68 mm Hg Jun, MEDICATIONS Medication SIG (Take, Route, Frequency, Duration) Notes Start Da te End Date Status Flomax 0.4 MG 1 capsule Orally Once a day for 90 days 2020 Active Bactrim DS 800-160 MG 1 tablet Orally as directed-1 hour prior t o cystoscopy May, Active PROCEDURES from 1955 to 2021-06-30 Procedure Date Ordered Result Body Site Med: Lidocaine Jelly 2% 6ml Intravesically (Glydo) 2021-06-26 N/A RESULTS No Results REASON FOR VISIT nocturia MEDICAL (GENERAL) HISTORY Type Description Date Medical History Arthritis Medical History Skin Cancer Medical History Neurological Problems Surgical History knee surgery Surgical History periodic orthoscopes Surgical History foot surgery Surgical History cystoscopy 06/26/21 Goals Section No Information Health Concerns No Information MEDICAL EQUIPMENT No Information MENTAL STATUS No Information FUNCTIONAL STATUS No Information ASSESSMENTS Encounter Date Diagnosis Assessment Notes Treatment Notes Treatm ent Clinical Notes Jun, Bladder tumor (ICD-10 - D49.4) Jun, Nocturia (ICD-10 - R35.1) Jun, Benign prostatic hyperplasia with lower urinary tract symptoms (ICD-10 - N40.1) PLAN OF TREATMENT Medication Medication Name Sig Start Date Stop Date Flomax 0.4 MG 1 capsule Orally Once a day for 90 days Jun, Treatment Notes Test Name Order Date CBC - Complete Blood Count 2021-06-26 URINE CULTURE 2021-06-26 Basic Metabolic Profile (BMP) 2021-06-26 Electrocardiogram (EKG) 2021-06-26 ADM CHEST 2 VIEW 2021-06-26 Insurance Providers Payer Name Payer Address Payer Phone Insured Name Patient Relati onship to Insured Coverage Start Date Coverage End Date BCBS [place] PPO [phone] [facility] [place] [address] KENDALL MARTINEZ self
--- OUTSIDE RECORDS SUMMARY | 2021-07-29 09:42 | CCD | Continuity of Care Document ---
Author Author [facility] Organization Unknown Address [address] [place] [address] Phone Unavailable Care Team Providers Care Vp Strategy Name Role Phone Marshall Oliva JR, MD AUTM Unavailable Mayo Guo Surya CHIN AUTM [phone] AttCarol yan AUTM [phone] Beau Pink AUTM [phone] Problems Active Problems Provider Date Pure hypercholesterolemia Marshall Oliva MD Onset: 11/26 Pure hyperglyceridemia Marshall Oliva MD Onset: 11/26/19 14 Obesity Marshall Oliva MD Onset: 11/26/2013 Body mass index 30+ - obesity Marshall Oliva MD Onset: 0 11/26/2013 Metabolic syndrome X Marshall Oliva MD Onset: 11/26/2013 Chronic nonalcoholic liver disease Marshall Oliva MD Ons et: 11/26/2013 Nonalcoholic steatohepatitis (Cat) Marshall Oliva MD On set: 06/22/2016 Peripheral venous insufficiency Marshall Oliva MD Onset: 11/15/2018 Social History Type Date Description Comments Sex Unknown ETOH Use Occasionally consumes alcohol Tobacco Use Start: Unknown Patient has never smoked Allergies and adverse reactions Description No Known Drug Allergies Medications Active Medications SIG Qnty Indications Ordering Provide r Date Viagra 25mg Tablets 1 by mouth 30min prior to need 5tabs Marshall Oliva MD 07/24/2019 Medications Administered in Office Medication SIG Qnty Indications Ordering Provider Date Immunization Adminstration,1 Vaccine/Tox oid Injection Marshall Oliva MD 2019 Immunization Adminstration,1 Vaccine/Tox oid Injection Marshall Oliva MD 2018 Immunizations CPT Code Status Date Vaccine Lot # 11968 Given 06/27/2020 Influenza Vaccin e Quadrivalent Preser/Antibiotic Free Im Use [id number] Given 08/02/2019 Influenza Vaccin e Quadrivalent Preser/Antibiotic Free Im Use [id number] 13181 Given 08/31/2010 Influenza Virus Vaccine Vital Signs Date Vital Result Comment 03/13/2021 8:15am BP Systolic 100 mmHg BP Diastolic 68 mmHg Heart Rate 76 /min Height 69.25 inches 5'9.25" Weight 203.00 lb BMI (Body Mass Index) 29.8 kg/m2 08/05/2020 8:41am BP Systolic 138 mmHg BP Diastolic 82 mmHg Heart Rate 74 /min Height 69.25 inches 5'9.25" Weight 219.00 lb O2 % BldC Oximetry 97 % RM Air BMI (Body Mass Index) 32.1 kg/m2 Results Test Acquired Date Facility Test Result H/L Range Note Complete Blood Count 03/13/2021 [facility] Solar Photovoltaic Designer: Dr Marshall Oliva [place], [place] [id number] [phone] WBC 6.9 x10*3/UL 4.1 - 10.9 RBC 4.67 x10*6/UL 4.20 - 6.30 Hemoglobin 14.7 g/dL 12.0 - 18.0 Hematocrit 40.9 % 37.0 - 51.0 MCV 87.6 fL 80.0 - 97.0 MCH 31.5 pg 26.0 - 32.0 MCHC 35.9 g/dL 31.0 - 38.0 RDW 12.3 % 11.6 - 13.7 PLT 215 x10*3/UL 140 - 440 MPV 8.1 FL 7.8 - 11.0 Lymph % 27.8 % 10.0 - 58.5 Mid % 5.4 % 1.7 - 9.3 Neut % 66.8 % 37.0 - 92.0 Lymph # 1.9 x10*3/UL 0.6 - 4.1 Mid # 0.4 x10*3/UL 0.1 - 0.6 Neut # 4.6 x10*3/UL 2.0 - 7.8 A1c 03/13/2021 [facility] , Solar Photovoltaic Designer: [place] [address] [phone] Hba1c 4.9 % <5.7 1 Est Avg Glucose 94 mg/dL 60 - 110 Comprehensive Chem Profile 03/13/2021 [facility], Solar Photovoltaic Designer: [place] [address] [phone] Glucose 104 mg/dL High 74 - 99 2 BUN 15 mg/dL 7 - 18 Creatinine 1.0 mg/dL 0.6 - 1.3 Sodium 145 mEq/L 136 - 145 Potassium 4.3 mEq/L 3.5 - 5.1 Chloride 107 mEq/L 98 - 107 Carbon Dioxide 27 mEq/L 21 - 32 Calcium 9.2 mg/dL 8.5 - 10.1 Alk. Phosphatase 45 mg/dL Low 46 - 116 Total Bilirubin 0.7 mg/dL 0.2 - 1.0 Ast (Sgot) 22 U/L 15 - 37 Alt (SGPT) 34 U/L 12 - 78 Albumin 4.2 g/dL 3.4 - 5.0 Total Protein 7.1 g/dL 6.4 - 8.2 A/G Ratio 1.45 CALC 1.00 - 1.90 GFR >= 60 mL/min >60 GFR >= 60 mL/min >60 3 Lipid Profile 03/13/2021 [facility] [employer] Photovoltaic Designer: [place] [address] [phone] Cholesterol 170 mg/dL 131 - 200 Triglycerides 105 mg/dL 30 - 150 HDL Cholesterol 41 mg/dL 35 - 60 LDL (Calculated) 108 CALC 50 - 159 Laboratory test finding 03/13/2021 [facility], Solar Photovoltaic Designer: [place] [address] [phone] PSA 1.10 ng/mL <4.00 4 1 Lab Result Notes: Pre-Diabetes 5.7 - 6.4 % Diabetes = or > 6.5% 2 100-125 mg/dL PRE-DIABET ES/FASTING >126 mg/dL DIABETES/FASTING 3 CHRONIC KIDNEY DISEASE STAGI NG PER NKF STAGE I & II GFR >= 60 NORMAL TO MILDLY DECREASED STAGE III GFR 30-59 MODERATELY DECREASED STAGE IV GFR 15-29 SEVERELY DECREASED STAGE V GFR <15 VERY LITTLE GFR LEFT ESRD GFR <15 ON DISTRICT FIRE MANAGEMENT OFFICER 4 This assay was performed on the Siemens Dimension EXL using the B- Galactosidase/CPRG methodology and should not be compared interchangeably with other methods. The PSA should not be used alone as a screening test for the presence or absence of malignant disease. Procedures Date Code Description Status 03/13/2021 41727 Est Prevent Med (40-64Yrs) Compl eted 03/13/2021 02896 EKG/Interpretation & Report Comp leted 08/16/2018 [id number] Colonoscopy Completed 06/03/2015 [id number] Colonoscopy Completed 05/17/2014 [id number] Colonoscopy Completed 04/26/2007 [id number] Colonoscopy Completed Medical Devices Description No Information Available Encounters Type Date Location Provider Dx Diagnosis Office Visit 03/13/2021 8:20a [facility] Marshall Oliva MD Z00.01 Encounter for general adult medical exam w abnormal findings R73.09 Other abnormal glucose D48.5 Neoplasm of uncertain behavi or of skin E78.2 Mixed hyperlipidemia Z86.010 Personal history of colonic polyps N32.81 Overactive bladder Z12.5 Encounter for screening for malignant neoplasm of prostate E66.3 Overweight Z68.29 Body mass index [BMI] 29.0-2 9.9, adult Z00.00 Encntr for general adult med ical exam w/o abnormal findings Assessments Date Code Description Provider 03/13/2021 Z00.01 Encounter for genera l adult medical examination with abnormal findings Marshall Oliva MD 03/13/2021 R73.09 Other abnormal glucose Marshall Oliva MD 03/13/2021 D48.5 Neoplasm of uncertain behavior o f skin Marshall Oliva MD 03/13/2021 E78.2 Mixed hyperlipidemia Marshall Oliva MD 03/13/2021 Z86.010 Personal history of colonic poly ps Marshall Oliva MD 03/13/2021 N32.81 Overactive bladder Marshall mao MD 03/13/2021 Z12.5 Encounter for screening for tisha gnant neoplasm of prostate Marshall Oliva MD 03/13/2021 E66.3 Overweight Marshall mora MD 03/13/2021 Z68.29 Body mass index [BMI] 29.0-29.9, adult Marshall Oliva MD 03/13/2021 Z00.00 Encntr for general adult medical exam w/o abnormal findings Marshall Oliva MD Plan of Treatment Future Appointment(s):* 03/16/2022 9:00 am - Marshall Oliva MD at [facility] 03/13/2021 - Marshall Oliva MD* Z00.01 Encounter for general adult medical examination with abnormal findings * R73.09 Other abnormal glucose * D48.5 Neoplasm of uncertain behavior of skin * E78.2 Mixed hyperlipidemia* Comments:* LDL at goal. * Z86.010 Personal history of colonic polyps * N32.81 Overactive bladder * Z12.5 Encounter for screening for malignant neoplasm of prostate * E66.3 Overweight * Z68.29 Body mass index [BMI] 29.0-29.9, adult * Z00.00 Encntr for general adult medical exam w/o abnormal findings Functional Status Description No Information Available Mental Status Description No Information Available Referrals Refer to Dr Reason for Referral Status Appt Date Israel Ingram M.D. CONSULT FOR BPH, OVERACTIVE BLADDER Creat ed [facility] [address] , [facility] [place] [address] [phone]
--- OUTSIDE RECORDS SUMMARY | 2021-07-29 09:42 | CCD ---
Author Author [facility] Organization [facility] Address Unknown Phone Unavailable Care Team Providers Care Ostrich Farmer Name Role Phone Aristeo Moya Unavailable PROBLEMS ALLERGIES No Known Allergies ENCOUNTERS from 1955 to 2021-05-12 IMMUNIZATIONS No Information SOCIAL HISTORY REASON FOR REFERRAL No Information VITAL SIGNS MEDICATIONS PROCEDURES No Information RESULTS No Results REASON FOR VISIT MEDICAL (GENERAL) HISTORY Goals Section Health Concerns MEDICAL EQUIPMENT No Information MENTAL STATUS FUNCTIONAL STATUS ASSESSMENTS No Information PLAN OF TREATMENT Insurance Providers
--- OUTSIDE RECORDS SUMMARY | 2021-07-29 09:42 | CCD ---
Author Author [facility] Organization [facility] Address Unknown Phone Unavailable Care Team Providers Care Trapeze Performer Name Role Phone Shane Beckwith Unavailable PROBLEMS Type Condition ICD9-CM Code [id number] Code Onset Dates Condition S tatus W/U Status Risk SNOMED Code Notes Problem Benign prostatic hyperplasia without lower urina ry tract symptoms N40.0 Active confirmed 458618592 Problem Benign prostatic hyperplasia with lower urinary tract symptoms N40.1 Active confirmed 8571338377121 Problem Prostate cancer screening Z12.5 Active confirmed 137536859 Problem Nocturia R35.1 Active confirmed 795685230 ALLERGIES No Known Allergies ENCOUNTERS from 1955 to 2021-07-03 Encounter Location Date Provider Diagnosis [facility] [address] [phone] [place] [address] Jun, Shane Beckwith Benign prostatic hyperplasia without low er urinary tract symptoms N40.0 and Benign prostatic hyperplasia with lower urinary tract symptoms N40.1 IMMUNIZATIONS No Information SOCIAL HISTORY Tobacco Use: Social History Observation Description Date Details (start date - stop date) Sex Assigned At : Social History Observation Description Sex Assigned At Unknown Language: Question Answer Notes Languages spoken: Hong Konger Hindu: Question Answer Notes Hindu No sabianist beliefs that would impact health care. Alcohol [...] REASON FOR REFERRAL No Information VITAL SIGNS No information MEDICATIONS Medication SIG (Take, Route, Frequency, Duration) Notes Start Da te End Date Status Flomax 0.4 MG 1 capsule Orally Once a day for 90 days 17 S , 2020 Active Flomax 0.4 MG 1 capsule Orally Once a day for 90 days 24 S , 2020 Active Bactrim DS 800-160 MG 1 tablet Orally as directed-1 hour prior t o cystoscopy May, Active PROCEDURES No Information RESULTS No Results REASON FOR VISIT flomax MEDICAL (GENERAL) HISTORY Type Description Date Medical [...] Treatment Notes Treatm ent Clinical Notes Jun, Benign prostatic hyperplasia without lower urinary tract symptoms (ICD-10 - N40.0) Jun, Benign prostatic hyperplasia with lower urinary tract symptoms (ICD-10 - N40.1) PLAN OF TREATMENT Medication Medication Name Sig Start Date Stop Date Flomax 0.4 MG 1 capsule Orally Once a day for 90 days Jun, Flomax 0.4 MG 1 capsule Orally Once a day for 90 days Jun, Next Appt Details Provider Name:Israel Ingram, 01:45:00 PM, [address], , [place], [address], Insurance Providers Payer Name Payer Address Payer Phone Insured Name Patient Relati onship to Insured Coverage Start Date Coverage End Date BCBS [place] PPO [id number] [facility] [place] [address] KENDALL MARTINEZ self
--- OUTSIDE RECORDS SUMMARY | 2021-07-29 09:42 | CCD ---
Author Author [facility] Organization [facility] Address Unknown Phone Unavailable Care Team Providers Care Bulb Grower Name Role Phone Amena Shane Unavailable PROBLEMS Type Condition ICD9-CM Code [id number] Code Onset Dates Condition S tatus W/U Status Risk SNOMED Code Notes Problem Nocturia R35.1 Active confirmed 052416100 Problem Benign prostatic hyperplasia without lower urina ry tract symptoms N40.0 Active confirmed 136965653 Problem Prostate cancer screening Z12.5 Active confirmed 730866360 ALLERGIES No Known Allergies ENCOUNTERS from 1955 to 2021-06-11 Encounter Location Date Provider Diagnosis [facility] [address] [phone] [place] [address] Jun, Shane Amena IMMUNIZATIONS No Information SOCIAL HISTORY Tobacco Use: Social History Observation Description Date Details (start date - stop date) Sex Assigned At : Social History Observation Description Sex Assigned At Unknown Language: Question Answer Notes Languages spoken: Iraqi Nondenominational: Question Answer Notes Nondenominational No buddhist beliefs that would impact health care. Alcohol [...] Notes Start Da te End Date Status Bactrim DS 800-160 MG 1 tablet Orally as directed-1 hour prior t o cystoscopy May, Active PROCEDURES No Information RESULTS No Results REASON FOR VISIT 06/26/2021 appt MEDICAL (GENERAL) HISTORY Type Description Date Medical History Arthritis Medical History Skin Cancer Medical History Neurological Problems Surgical History knee surgery Surgical History periodic orthoscopes Surgical History foot surgery Goals Section No Information Health Concerns No Information MEDICAL EQUIPMENT No Information MENTAL STATUS No Information FUNCTIONAL STATUS No Information ASSESSMENTS No Information PLAN OF TREATMENT Medication Medication Name Sig Start Date Stop Date Bactrim DS 800-160 MG 1 tablet Orally as directed-1 hour rasheed or to cystoscopy May, Next Appt Details Provider Name:Shane Beckwith, 11:00:00 AM, [address], , [place], [address], Insurance Providers Payer Name Payer Address Payer Phone Insured Name Patient Relati onship to Insured Coverage Start Date Coverage End Date BCBS [place] PPO [id number] [facility] [place] [address] KENDALL MARTINEZ self
--- OUTSIDE RECORDS SUMMARY | 2021-07-29 09:42 | CCD ---
Author Author [facility] Organization [facility] Address Unknown Phone Unavailable Care Team Providers Care Electroplater Apprentice Name Role Phone KurtisCarol chance Unavailable PROBLEMS Type Condition ICD9-CM Code [id number] Code Onset Dates Condition S tatus W/U Status Risk SNOMED Code Notes Problem Nocturia R35.1 Active confirmed 790179610 Problem Benign prostatic hyperplasia without lower urina ry tract symptoms N40.0 Active confirmed 084716889 Problem Prostate cancer screening Z12.5 Active confirmed 283331009 ALLERGIES No Known Allergies ENCOUNTERS from 1955 to 2021-06-10 Encounter Location Date Provider Diagnosis [facility] Urology [address] [phone] [place] [address] May, Carol Weathers Nocturia R35.1 and Benign prostatic hype rplasia without lower urinary tract symptoms N40.0 IMMUNIZATIONS No Information SOCIAL HISTORY Tobacco Use: Social History Observation Description Date Details (start date - stop date) Sex Assigned At : Social History Observation Description Sex Assigned At Unknown Language: Question Answer Notes Languages spoken: Thai Rastafari: Question Answer Notes Rastafari No rastafari beliefs that would impact health care. Alcohol [...] No Information VITAL SIGNS Weight 205 lbs May, Weight-kg 92.99 kg May, Height 70 in May, BMI 29.41 kg/m2 May, Heart Rate 65 /min May, Respiratory Rate 18 /min May, Temperature 98.2 degrees Fahrenheit May, Oximetry 97% May, Blood pressure systolic 126 mm Hg May, Blood pressure diastolic 70 mm Hg May, MEDICATIONS Medication SIG (Take, Route, Frequency, Duration) Notes Start Da te End Date Status Bactrim DS 800-160 MG 1 tablet Orally as directed-1 hour prior t o cystoscopy May, Active PROCEDURES from 1955 to 2021-06-10 Procedure Date Ordered Result Body Site uro PVR (Post Voiding Residual) Bladder Scan 2021-06-09 N/A RESULTS No Results REASON FOR VISIT 6 week f/u PSA MEDICAL (GENERAL) HISTORY Type Description Date Medical History Arthritis Medical History Skin Cancer Medical History Neurological Problems Surgical History knee surgery Surgical History periodic orthoscopes Surgical History foot surgery Goals Section No Information Health Concerns No Information MEDICAL EQUIPMENT No Information MENTAL STATUS No Information FUNCTIONAL STATUS No Information ASSESSMENTS Encounter Date Diagnosis Assessment Notes Treatment Notes Treatm ent Clinical Notes May, Nocturia (ICD-10 - R35.1) May, Benign prostatic hyperplasia without lower urinary tract symptoms (ICD-10 - N40.0) PLAN OF TREATMENT Medication Medication Name Sig Start Date Stop Date Bactrim DS 800-160 MG 1 tablet Orally as directed-1 hour rasheed or to cystoscopy May, Next Appt Details cysto Reason: Provider Name:Shane Beckwiht, 11:00:00 AM, [address], , [place], [address], Insurance Providers Payer Name Payer Address Payer Phone Insured Name Patient Relati onship to Insured Coverage Start Date Coverage End Date [place]BS [place] PPO [phone] [facility] [place] [id number] KENDALL MARTINEZ self
--- OUTSIDE RECORDS SUMMARY | 2021-07-29 09:42 | CCD | Continuity of Care Document ---
Author Author [facility] Organization Unknown Address [address] [place] [address] Phone [phone] Care Team Providers Care Enterprise Integration Architect Name Role Phone Marshall Oliva JR, MD AUTM Unavailable Mayo Guo DPM AUTM [phone] AttCarol yan AUTM [phone] Beau Pink AUTM [phone] Problems Active Problems Provider Date Pure hypercholesterolemia [...] CPT Code Status Date Vaccine Lot # [id number] Given 06/27/2020 Influenza Vaccin e Quadrivalent Preser/Antibiotic Free Im Use [id number] 74111 Given 08/02/2019 Influenza Vaccin e Quadrivalent Preser/Antibiotic Free Im Use [id number] 45412 Given 08/31/2010 Influenza Virus Vaccine Vital Signs [...] Date Facility Test Result H/L Range Note Laboratory test finding 07/22/2021 [facility] [address] [place], [place] [address] [phone] Urine Culture <pending> Complete Blood Count 07/22/2021 [facility] B And B Gang Worker: [place] [address] [phone] WBC 7.1 x10*3/UL 4.1 - 10.9 RBC 4.58 x10*6/UL 4.20 - 6.30 Hemoglobin 14.4 g/dL 12.0 - 18.0 Hematocrit 40.2 % 37.0 - 51.0 MCV 87.7 fL 80.0 - 97.0 MCH 31.4 pg 26.0 - 32.0 MCHC 35.8 g/dL 31.0 - 38.0 RDW 12.6 % 11.6 - 13.7 PLT 199 x10*3/UL 140 - 440 MPV 7.6 FL Low 7.8 - 11.0 Lymph % 25.8 % 10.0 - 58.5 Mid % 5.3 % 1.7 - 9.3 Neut % 68.9 % 37.0 - 92.0 Lymph # 1.8 x10*3/UL 0.6 - 4.1 Mid # 0.4 x10*3/UL 0.1 - 0.6 Neut # 4.9 x10*3/UL 2.0 - 7.8 Basic Metabolic Panel 07/22/2021 [facility] [employer] And B Gang Worker: [place] [address] [phone] Glucose 97 mg/dL 74 - 99 1 BUN 11 mg/dL 7 - 18 Creatinine 1.0 mg/dL 0.6 - 1.3 Sodium 141 mEq/L 136 - 145 Potassium 4.1 mEq/L 3.5 - 5.1 Chloride 104 mEq/L 98 - 107 Carbon Dioxide 31 mEq/L 21 - 32 Calcium 9.0 mg/dL 8.5 - 10.1 GFR >= 60 mL/min >60 GFR >= 60 mL/min >60 2 Complete Blood Count 03/13/2021 [facility] [employer] And B Gang Worker: [place] [address] [phone] WBC 6.9 x10*3/UL 4.1 - 10.9 RBC [...] 4.6 x10*3/UL 2.0 - 7.8 A1c 03/13/2021 [facility] [employer] And B Gang Worker: [place] [address] [phone] Hba1c 4.9 % <5.7 3 Est Avg Glucose 94 mg/dL 60 - 110 Comprehensive Chem Profile 03/13/2021 [facility] [employer] And B Gang Worker: [place] [address] [phone] Glucose 104 mg/dL High 74 - 99 4 BUN 15 mg/dL 7 - 18 Creatinine [...] mL/min >60 GFR >= 60 mL/min >60 5 Lipid Profile 03/13/2021 [facility] [employer] B Gang Worker: [place] [address] [phone] Cholesterol 170 mg/dL 131 - 200 Triglycerides 105 mg/dL 30 - 150 HDL Cholesterol 41 mg/dL 35 - 60 LDL (Calculated) 108 CALC 50 - 159 Laboratory test finding 03/13/2021 [facility] [employer] And B Gang Worker: [place] [address] [phone] PSA 1.10 ng/mL <4.00 6 1 100-125 mg/dL PRE-DIABET ES/FASTING >126 mg/dL DIABETES/FASTING 2 CHRONIC KIDNEY DISEASE STAGI NG PER NKF STAGE I & II GFR >= 60 NORMAL TO MILDLY DECREASED STAGE III GFR 30-59 MODERATELY DECREASED STAGE IV GFR 15-29 SEVERELY DECREASED STAGE V GFR <15 VERY LITTLE GFR LEFT ESRD GFR <15 ON ELECTRICIAN ASSISTANT 3 Lab Result Notes: Pre-Diabetes 5.7 - 6.4 % Diabetes = or > 6.5% 4 100-125 mg/dL PRE-DIABET ES/FASTING >126 mg/dL DIABETES/FASTING 5 CHRONIC KIDNEY DISEASE STAGI NG PER NKF STAGE I & II GFR >= 60 NORMAL TO MILDLY DECREASED STAGE III GFR 30-59 MODERATELY DECREASED STAGE IV GFR 15-29 SEVERELY DECREASED STAGE V GFR <15 VERY LITTLE GFR LEFT ESRD GFR <15 ON ELECTRICIAN ASSISTANT 6 This assay was performed on the Siemens Dimension EXL using the B- Galactosidase/CPRG methodology and should not be compared interchangeably with other methods. The PSA should not be used alone as a screening test for the presence or absence of malignant disease. Procedures Date Code Description Status 03/13/2021 53075 Est Prevent Med (40-64Yrs) Compl eted 03/13/2021 42054 EKG/Interpretation & Report Comp leted 08/16/2018 [id number] Colonoscopy Completed 06/03/2015 [id number] Colonoscopy Completed 05/17/2014 [id number] Colonoscopy Completed 04/26/2007 [id number] Colonoscopy Completed Medical Devices Description No Information Available Encounters Type Date Location Provider Dx Diagnosis Office Visit 03/13/2021 8:20a [facility] Marshall Oliva MD Z00.01 Encounter [...] 9:00 am - Marshall Oliva MD at [facility] 03/13/2021 - Marshall Oliva MD* [...] CONSULT FOR BPH, OVERACTIVE BLADDER Creat ed [facility] [address], [place] [address] [phone]
--- OUTSIDE RECORDS SUMMARY | 2021-07-29 09:43 | CCD ---
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 Name Role Phone Shannon, Melida CALL OUT OPERATOR Unavailable Unavailable Shannon, Melida CALL OUT OPERATOR Unavailable Unavailable Shannon, Melida CALL OUT OPERATOR Unavailable Unavailable Shannon, Melida CALL OUT OPERATOR Unavailable Unavailable Shannon, Melida CALL OUT OPERATOR Unavailable Unavailable Shannon, Melida CALL OUT OPERATOR Unavailable Unavailable Shannon, Melida CALL OUT OPERATOR Unavailable Unavailable Shannon, Melida CALL OUT OPERATOR Unavailable Unavailable Shannon, Melida CALL OUT OPERATOR Unavailable Unavailable Shannon, Melida CALL OUT OPERATOR Unavailable Unavailable Shannon, Melida CALL OUT OPERATOR Unavailable Unavailable Shannon, Melida CALL OUT OPERATOR Unavailable Unavailable Shannon, Melida CALL OUT OPERATOR Unavailable Unavailable LePine, M Charleen GINGER FARMER Unavailable Unavailable LePine, M Charleen GINGER FARMER Unavailable Unavailable Le[place]ine, M Charleen GINGER FARMER Unavailable Unavailable Le[place]ine, M Charleen GINGER FARMER Unavailable Unavailable [place], M Charleen GINGER FARMER Unavailable Unavailable Le[place]ine, M Charleen GINGER FARMER Unavailable Unavailable [place], M Charleen GINGER FARMER Unavailable Unavailable [place], M Charleen GINGER FARMER Unavailable Unavailable [place], M Charleen GINGER FARMER Unavailable Unavailable [place], M Charleen GINGER FARMER Unavailable Unavailable Le[place], M Charleen GINGER FARMER Unavailable Unavailable Le[place], M Charleen GINGER FARMER Unavailable Unavailable Le[place]ine, M Charleen GINGER FARMER Unavailable Unavailable Le[place]ine, M Charleen GINGER FARMER Unavailable Unavailable Le[place]ine, M Charleen GINGER FARMER Unavailable Unavailable Le[place]ine, M Charleen GINGER FARMER Unavailable Unavailable Le[place], M Charleen GINGER FARMER Unavailable Unavailable Le[place]ine, M Charleen GINGER FARMER Unavailable Unavailable Le[place]ine, M Charleen GINGER FARMER Unavailable Unavailable Le[place]ine, M Charleen GINGER FARMER Unavailable Unavailable Le[place]ine, M Charleen GINGER FARMER Unavailable Unavailable Le[place]ine, M Charleen GINGER FARMER Unavailable Unavailable Le[place]ine, M Charleen GINGER FARMER Unavailable Unavailable Le[place], M Charleen GINGER FARMER Unavailable Unavailable LePine, M Charleen GINGER FARMER Unavailable Unavailable LePine, M Charleen GINGER FARMER Unavailable Unavailable LePine, M Charleen GINGER FARMER Unavailable Unavailable LePine, M Charleen GINGER FARMER Unavailable Unavailable LePine, M Charleen GINGER FARMER Unavailable Unavailable LePine, M Charleen GINGER FARMER Unavailable Unavailable LePine, M Charleen GINGER FARMER Unavailable Unavailable LePine, M Charleen GINGER FARMER Unavailable Unavailable LePine, M Charleen GINGER FARMER Unavailable Unavailable LePine, M Charleen GINGER FARMER Unavailable Unavailable LePine, M Charleen GINGER FARMER Unavailable Unavailable LePine, M Charleen GINGER FARMER Unavailable Unavailable LePine, M Charleen GINGER FARMER Unavailable Unavailable LePine, M Charleen GINGER FARMER Unavailable Unavailable LePine, M Charleen GINGER FARMER Unavailable Unavailable LePine, M Charleen GINGER FARMER Unavailable Unavailable LePine, M Charleen GINGER FARMER Unavailable Unavailable LePine, M Charleen GINGER FARMER Unavailable Unavailable LePine, M Charleen GINGER FARMER Unavailable Unavailable LePine, M Charleen GINGER FARMER Unavailable Unavailable LePine, M Charleen GINGER FARMER Unavailable Unavailable LePine, M Charleen GINGER FARMER Unavailable Unavailable LePine, M Charleen GINGER FARMER Unavailable Unavailable LePine, M Charleen GINGER FARMER Unavailable Unavailable LePine, M Charleen GINGER FARMER Unavailable Unavailable LePine, M Charleen GINGER FARMER Unavailable Unavailable LePine, M Charleen GINGER FARMER Unavailable Unavailable LePine, M Charleen GINGER FARMER Unavailable Unavailable LePine, M Charleen GINGER FARMER Unavailable Unavailable LePine, M Charleen GINGER FARMER Unavailable Unavailable LePine, M Charleen GINGER FARMER Unavailable Unavailable Le[place]ine, M Charleen GINGER FARMER Unavailable Unavailable Barry Oliva MD Unavailable Unavailable Barry Oliva MD Unavailable Unavailable Barry Oliva MD Unavailable Unavailable Barry Oliva MD Unavailable Unavailable Barry Oliva MD Unavailable Unavailable Barry Oliva MD Unavailable Unavailable Barry Oliva MD Unavailable Unavailable Barry Oliva MD Unavailable Unavailable Barry Oliva MD Unavailable Unavailable Barry Oliva MD Unavailable Unavailable Barry Oliva MD Unavailable Unavailable Barry Oliva MD Unavailable Unavailable Barry Oliva MD Unavailable Unavailable Barry Oliva MD Unavailable Unavailable Barry Oliva MD Unavailable Unavailable Barry Oliva MD Unavailable Unavailable Barry Oliva MD Unavailable Unavailable Barry Oliva MD Unavailable Unavailable Barry Oliva MD Unavailable Unavailable Barry Oliva MD Unavailable Unavailable Barry Oliva MD Unavailable Unavailable Barry Oliva MD Unavailable Unavailable [place] MD Unavailable Unavailable PjBarry MD Unavailable Unavailable PjBarry MD Unavailable Unavailable PjBarry MD Unavailable Unavailable PjBarry MD Unavailable Unavailable PjBarry MD Unavailable Unavailable [place] MD Unavailable Unavailable [place] MD Unavailable Unavailable [place] MD Unavailable Unavailable [place] MD Unavailable Unavailable [place] MD Unavailable Unavailable PjBarry MD Unavailable Unavailable [place] MD Unavailable Unavailable PjBarry MD Unavailable Unavailable [place] MD Unavailable Unavailable PjBarry MD Unavailable Unavailable [place] MD Unavailable Unavailable PjBarry MD Unavailable Unavailable PjBarry MD Unavailable Unavailable PjBarry MD Unavailable Unavailable PjBarry MD Unavailable Unavailable [place] MD Unavailable Unavailable PjBarry MD Unavailable Unavailable PjBarry MD Unavailable Unavailable [place] MD Unavailable Unavailable PjBarry MD Unavailable Unavailable [place] MD Unavailable Unavailable PjBarry MD Unavailable Unavailable PjBarry MD Unavailable Unavailable [place] MD Unavailable Unavailable [place] MD Unavailable Unavailable PjBarry MD Unavailable Unavailable [place] MD Unavailable Unavailable PjBarry MD Unavailable Unavailable PjBarry MD Unavailable Unavailable [place] salmeron MD Unavailable Unavailable [place] MD Unavailable Unavailable [place] MD Unavailable Unavailable [place] MD Unavailable Unavailable [place] MD Unavailable Unavailable [place] MD Unavailable Unavailable [place] MD Unavailable Unavailable [place] salmeron MD Unavailable Unavailable PjBarry MD Unavailable Unavailable [place] MD Unavailable Unavailable PjBarry MD Unavailable Unavailable PjBarry MD Unavailable Unavailable PjBarry MD Unavailable Unavailable [place] MD Unavailable Unavailable PjBarry MD Unavailable Unavailable [place] MD Unavailable Unavailable [place] MD Unavailable Unavailable [place] MD Unavailable Unavailable [place] MD Unavailable Unavailable [place], F Olivares MD Unavailable Unavailable [place], Barry Olivares MD Unavailable Unavailable Pj, F Marshall MD Unavailable Unavailable Pj, F Marshall MD Unavailable Unavailable [place], F Marshall MD Unavailable Unavailable Pj, F Marshall MD Unavailable Unavailable [place], F Marshall MD Unavailable Unavailable Pj, F Marshall MD Unavailable Unavailable [place], F Marshall MD Unavailable Unavailable Pj, Barry Olivares MD Unavailable Unavailable RING, K KAREL PA Unavailable Unavailable RING, K KAREL PA Unavailable Unavailable RING, K KAREL PA Unavailable Unavailable RING, K KAREL PA Unavailable Unavailable RING, K KAREL PA Unavailable Unavailable RING, K KAREL PA Unavailable Unavailable RING, K KAREL PA Unavailable Unavailable RING, K KAREL PA Unavailable Unavailable RING, K KAREL PA Unavailable Unavailable RING, K KAREL PA Unavailable Unavailable RING, K KAREL PA Unavailable Unavailable RING, K KAREL PA Unavailable Unavailable RING, K KAREL PA Unavailable Unavailable RING, K KAREL PA Unavailable Unavailable RING, K KAREL PA Unavailable Unavailable RING, K KAREL PA Unavailable Unavailable RING, K KAREL PA Unavailable Unavailable RING, K KAREL PA Unavailable Unavailable RING, K KAREL PA Unavailable Unavailable RING, K KAREL PA Unavailable Unavailable RING, K KAREL PA Unavailable Unavailable Re-disclosure Warning The records that you are about to access may contain information from federally-assisted alcohol or drug abuse programs. If such information is present, then the following federally mandated warning applies: This information has been disclosed to you from records protected by federal confidentiality rules (42 CFR part 2). The federal rules prohibit you from making any further disclosure of this information unless further disclosure is expressly permitted by the written consent of the person to whom it pertains or as otherwise permitted by 42 CFR part 2. A general authorization for the release of medical or other information is NOT sufficient for this purpose. The Federal rules restrict any use of the information to criminally investigate or prosecute any alcohol or drug abuse patient.The records that you are about to access may contain highly sensitive health information, the redisclosure of which is protected by Article 27-F of the [facility] Public Health law. If you continue you may have access to information: Regarding HIV / AIDS; Provided by facilities licensed or operated by the [facility] Office of Mental Health; or Provided by the [facility] Office for People With Developmental Disabilities. If such information is present, then the following [facility] mandated warning applies: This information has been disclosed to you from confidential records which are protected by state law. State law prohibits you from making any further disclosure of this information without the specific written consent of the person to whom it pertains, or as otherwise permitted by law. Any unauthorized further disclosure in violation of state law may result in a fine or shelter sentence or both. A general authorization for the release of medical or other information is NOT sufficient authorization for further disc losure. Family History Family Member Name Family Member Gender Family Member Status Date o f Status Description Data Source(s) Unknown Unknown Problem [facility] Unknown Male Problem [facility] ([facility] ) Unknown Unknown Problem [facility] ([facility]) that, as far as he knows, are basically healthy Unknown Unknown Problem [facility] ([facility] Encounters Encounter Providers Location Date Indications Data Source(s ) Unknown [address] [facility] [id number] 07/03/2021 12:00:00 AM EDT eCW1 ([email or web address] ([facility]) Urology [address] [place] [address] 06/26/2021 12:00:00 AM EDT eCW1 ([email or web address] Unknown [address] [facility] [place] [address] 06/11/2021 12:00:00 AM EDT eCW1 ([email or web address] Outpatient [address] [facility] [id number] 06/09/2021 12:00:00 AM EDT eCW1 ([facility]) Outpatient Attender: Melida mora 04/28/2021 05:00:00 PM EDT MEDENT ([facility]) Outpatient Attender: KAREL Jarrett 04/20/2021 11:15:00 AM EDT MED[facility] ([facility]) Unknown [address] [facility] [id number] 04/16/2021 12:00:00 AM EDT eCW1 ([facility]) [place] [address] [facility] [place] [address] 04/15/2021 12:00:00 AM EDT eCW1 ([facility]) Outpatient Attender: Marshall Kc 0 03/13/2021 08:20:00 AM EDT MEDENT ([facility] ) Outpatient Attender: Charleen Kc 08/05 08:40:00 AM EDT MEDENT ([facility] ) Immunizations Vaccine Date Status Description Data Source(s) COVID-19 VACCINE Moderna 01/29/2021 12:00:00 AM EDT completed [facility] Vaccine Series Complete: YESThis Data wa s Submitted to [facility] Via [employer]. COVID-19 VACCINE Moderna 01/01/2021 12:00:00 AM EDT completed [facility] Vaccine Series Complete: NOThis Data was Submitted to [facility] [employer]. Influenza, injectable, MDCK, preservative free, viviana valent 06/27/2020 03:02:00 PM EDT completed [facility] ([facility]) Medications Medication Brand Name Start Date Product Form Dose Route Admi nistrative Instructions Pharmacy Instructions Status Indications Reaction Description Data Source(s) 0.4 mg 07/03/2021 12:00:00 AM EDT capsule 90 TAKE ONE CAPSULE BY MOUTH EVERY DAY TAKE ONE CAPSULE BY MOUTH EVERY DAY SOLD: 07/03/2021 [facility] Tamsulosin hydrochloride 0.4 MG Oral Capsule [Flomax] Flomax 0.4 MG Flomax 0.4 MG 07/03/2021 12:00:00 AM EDT 1.0 {capsule} active Flomax 0.4 MG eCW1 ([facility]) Tamsulosin hydrochloride 0.4 MG Oral Capsule [Flomax] Flomax 0.4 MG Flomax 0.4 MG 06/26/2021 12:00:00 AM EDT 1.0 {capsule} active Flomax 0.4 MG eCW1 ([facility]) Tamsulosin hydrochloride 0.4 MG Oral Capsule [Flomax] Flomax 0.4 MG Flomax 0.4 MG 06/26/2021 12:00:00 AM EDT 1.0 {capsule} active Flomax 0.4 MG eCW1 ([facility]) Sulfamethoxazole 800 MG / Trimethoprim 1 60 MG Oral Tablet [Bactrim] Bactrim DS 800-160 MG Bactrim DS 800-160 MG 06/09/2021 12:00:00 AM EDT 1.0 {table t} active Bactrim DS 800-160 MG eCW1 ( [facility]) Sulfamethoxazole 800 MG / Trimethoprim 1 60 MG Oral Tablet [Bactrim] Bactrim DS 800-160 MG Bactrim DS 800-160 MG 06/09/2021 12:00:00 AM EDT 1.0 {table t} active Bactrim DS 800-160 MG eCW1 ( [facility]) Sulfamethoxazole 800 MG / Trimethoprim 1 60 MG Oral Tablet [Bactrim] Bactrim DS 800-160 MG Bactrim DS 800-160 MG 06/09/2021 12:00:00 AM EDT 1.0 {table t} active Bactrim DS 800-160 MG eCW1 ( [facility]) 800-160 mg 06/09/2021 12:00:00 AM EDT tablet 1 TAKE ONE TABLET DIRECTED ONE HOUR PRIOR TO CYSTOSCOPY TAKE ONE TABLET DIRECTED ONE HOUR JORDAN OR TO CYSTOSCOPY SOLD: 06/10/2021 [facility] Sulfamethoxazole 800 MG / Trimethoprim 1 60 MG Oral Tablet [Bactrim] Bactrim DS 800-160 MG Bactrim DS 800-160 MG 06/09/2021 12:00:00 AM EDT 1.0 {table t} active Bactrim DS 800-160 MG eCW1 ( [facility]) 0.3-0.1 % 04/20/2021 12:00:00 AM EDT drops,suspension 7 INSTILL 4 DROPS EVERY 12 HOURS IN THE RIGHT EAR FOR 7 DAYS INSTILL 4 DROPS EVERY 12 HOURS IN THE RIGHT EAR FOR 7 DAYS SOLD: 04/20/2021 [facility] Ciprofloxacin 3 MG/ML / Dexamethasone 1 MG/ML Otic [employer] [Ciprodex] Ciprodex 04/20/2021 12:00:00 AM EDT AURICULAR completed MEDENT ([facility]) 10 mg 04/16/2021 12:00:00 AM EDT tablet extended release 24hr 30 TAKE ONE TABLET BY MOUTH EVERY DAY TAKE ONE TABLET BY MOUTH EVERY DAY SOLD: 05/18/2021 [facility] 10 mg 04/16/2021 12:00:00 AM EDT tablet extended release 24hr 30 TAKE ONE TABLET BY MOUTH EVERY DAY TAKE ONE TABLET BY MOUTH EVERY DAY SOLD: 04/17/2021 [facility] 24 HR Oxybutynin chloride 10 MG Extended Release Oral Tablet Oxybutynin Chloride ER 10 MG Oxybutynin Chloride ER 10 MG 04/15/2021 12:00:00 AM EDT 1.0 {tablet} active eCW1 ([facility]) 24 HR Oxybutynin chloride 10 MG Extended Release Oral Tablet Oxybutynin Chloride ER 10 MG Oxybutynin Chloride ER 10 MG 04/15/2021 12:00:00 AM EDT 1.0 {tablet} active Oxybutynin Chloride ER 1 0 MG eCW1 ([facility]) 10 mg 12/03/2020 12:00:00 AM EST tablet extended release 24 hr 30 TAKE ONE TABLET BY MOUTH EVERY DAY TAKE ONE TABLET BY MOUTH EVERY DAY SOLD: 12/05/2020 [facility] 10 mg 12/03/2020 12:00:00 AM EST tablet extended release 24 hr 30 TAKE ONE TABLET BY MOUTH EVERY DAY TAKE ONE TABLET BY MOUTH EVERY DAY SOLD: 01/04/2021 [facility] 24 HR Alfuzosin hydrochloride 10 MG Extended Release O ral Tablet Alfuzosin HCL ER 12/02/2020 12:00:00 AM EST ORAL completed [facility] ([facility]) 0.1 % 08/20/2020 12:00:00 AM EST cream 15 APPLY TO AFFECTED AREA(S) INCISION TWO TIMES A DAY APPLY TO AFFECTED AREA(S) INCISION TWO TIMES A DAY [facility] 5-325 mg 07/30/2020 12:00:00 AM EDT tablet 20 TAKE ONE TABLET BY MOUTH EVERY 6 HOURS FOR POST OP PAIN MAXIMUM DAILY DOSE = FOUR TABLETS TAKE ONE TABLET BY MOUTH EVERY 6 HOURS FOR POST OP PAIN MAXIMUM DAILY DOSE = FOUR TABLETS SOLD: 08/01/2020 [facility] Immunization Adminstration,1 Vaccine/Toxoid 06/27/2020 12:00 :00 AM EDT completed [facility] ([facility]) Medication administered onsite 5-325 mg 06/26/2020 12:00:00 AM EDT tablet 42 TAKE ONE TABLET EVERY 4 TO 6 HOURS NEEDED FOR PAIN, MAXIMUM DAILY DOSE =4 TAKE ONE TABLET EVERY 4 TO 6 HOURS NEEDED FOR PAIN, MAXIMUM DAILY DOSE =4 SOLD: 06/26/2020 [facility] 7.5-325 mg/15 mL 06/17/2020 12:00:00 AM EDT solution 420 TAKE 10 MLS BY MOUTH EVERY 4 TO 6 HOURS NEEDED MAX OF 60 MLS PER DAY TAKE 10 MLS BY MOUTH EVERY 4 TO 6 HOURS NEEDED MAX OF 60 MLS PER DAY SOLD: 06/17/2020 [facility] 2 % 06/07/2020 12:00:00 AM EDT solution 500 USE 5ML EVERY 2 HOURS NEEDED USE 5ML EVERY 2 HOURS NEEDED SOLD: 06/09/2020 [facility] 100 mg 06/06/2020 12:00:00 AM EDT capsule 90 TAKE ONE CAPSULE BY MOUTH THREE TIMES A DAY TAKE ONE CAPSULE BY MOUTH THREE TIMES A DAY SOLD: 06/29/2020 [facility] 100 mg 06/06/2020 12:00:00 AM EDT capsule 90 TAKE ONE CAPSULE BY MOUTH THREE TIMES A DAY TAKE ONE CAPSULE BY MOUTH THREE TIMES A DAY SOLD: 06/06/2020 [facility] 7.5-325 mg/15 mL 06/06/2020 12:00:00 AM EDT solution 420 TAKE TWO TEASPOONFUL (10ML) BY MOUTH EVERY 4 TO 6 HOURS NEEDED MAXIMUM DAILY DOSE = 60ML TAKE TWO TEASPOONFUL (10ML) BY MOUTH RIC RY 4 TO 6 HOURS NEEDED MAXIMUM DAILY DOSE = 60ML SOLD: 06/06/2020 [facility] 7.5-325 mg/15 mL 06/02/2020 12:00:00 AM EDT solution 420 TAKE 2 TEASPOONFUL BY MOUTH EVERY 4 TO 6 HOURS NEEDED MAXIMUM DAILY DOSE = 12 TEASPOONFUL TAKE 2 TEASPOONFUL BY MOUTH EVERY 4 TO 6 HOURS NEEDED MAXIMUM DAILY DOSE = 12 TEASPOONFUL SOLD: 06/02/2020 [facility] 0.4 mg 03/12/2020 12:00:00 AM EDT capsule 90 TAKE 1 CAPSULE BY MOUTH ONCE DAILY 1/2 HOUR AFTER THE SAME MEAL EACH DAY TAKE 1 CAPSULE BY MOUTH ONCE DAILY 1/2 HOUR AFTER THE SAME MEAL EACH DAY SOLD: 06/26/2020 [facility] Insurance Providers Payer name Policy type / Coverage type Policy ID Covered libertarian ID Covered libertarian's relationship to weber Policy Weber Plan Information [facility] [employer] [id number] Self [id number] [facility] [employer] Commercial [id number] Self [id number] BC/BS [facility] [address] Self [employer] [facility] (pr) Medigap Part B [id number] Self [id number] [employer] (pr) Medigap Part B [id number] Self [id number] [employer] (pr) Medigap Part B [id number] Self [id number] [employer] (pr) Medigap Part B [id number] Self [id number] [employer] (pr) Medigap Part B [id number] Self [id number] [employer] [facility] (pr) Medigap Part B [id number] Self [id number] [employer] (pr) Medigap Part B [id number] Self [id number] [facility] ([place] Medigap Part B [id number] Self [id number] [facility] Part B [id number] 2..[id number] Self [id number] [facility] [employer] Part B [id number] Self [id number] [facility] [employer] Part B [id number] 2...[id number] Self [id number] [facility] [employer] Part B [id number] Self [id number] [facility] [employer] Part B [id number] 2...[id number] Self [id number] [facility] [employer] Part B [id number] 2..[id number] Self [id number] [facility] [employer] Part B [id number] 2..[id number] Self [id number] [facility] [employer] Part B [id number] 2..[id number] Self [id number] [facility] [employer] Part B [id number] 2..[id number] Self [id number] [facility] Commercial [id number] Self [id number] [facility] Commercial [id number] Self [place] [employer] [id number] Self [id number] [employer] [place] PPO 302/307 [id number] SP [id number] [facility] Commercial [id number] 2...[id number] Self [id number] [facility] Commercial [id number] 2...[id number] Self [id number] [facility] Commercial [id number] Self [id number] [facility] Commercial [id number] Self [id number] [facility] Commercial [id number] 2..[id number] Self [id number] [facility] Commercial [id number] 2..[id number] Self [id number] [facility] Commercial [id number] 2..[id number] Self [id number] [facility] [employer] [id number] 2...[id number] Self [id number] [place] [employer] [id number] ..[id number] Self [id number] [employer] [place] PPO 302/307 [id number] SP [id number] [employer] [place] PPO 302/307 [id number] SP [id number] [employer] PPO 302/307 [id number] SP [id number] BLUE CROSS BLUE SHIELD-O/P [id number] 18 [id number] [employer] [facility] Part B [id number] ..[id number] Self [id number] [employer] [facility] Part B [id number] ..[id number] Self [id number] [facility] Part B [id number] ..[id number] Self [id number] [employer] [facility] Part B [id number] ..[id number] Self [id number] [facility] [employer] [id number] ..[id number] Self [id number] [employer] [place] PPO 302/307 [id number] SP [id number] [employer] [facility] Part B [id number] ..[id number] Self [id number] [employer] [facility] Part B [id number] Self [id number] [employer] [facility] Part B [id number] Self [id number] [employer] [facility] Part B [id number] Self [id number] [employer] [facility] B [id number] Self [id number] [facility] B [id number] S [id number] Problems, Conditions, and Diagnoses Code Display Name Description Problem Type Effective Dates Data Source(s) N40.1 [id number] Benign prostatic hyp erplasia with lower urinary tract symptoms Problem 06/26/2021 12:00:00 AM EDT eCW1 ([facility]) N40.0 Benign prostatic hypertrophy without out flow obstruction Benign prostatic hyperplasia without lower urinary tract symptoms Problem 06/09 12:00:00 AM EDT eCW1 ([facility]) R35.1 Nocturia Nocturia Problem 04/15/2021 12:00:00 AM ED T eCW1 ([facility]) Z12.5 Screening for malignant neoplasm of prostate Pro state cancer screening Problem 04/15/2021 12:00:00 AM EDT eCW1 ([facility]) Surgeries/Procedures Procedure Description Date Indications Data Source(s) Med: Lidocaine Jelly 2% 6ml Intravesically (Glydo) 06/26/2021 12:00:00 AM EDT eCW1 ([facility]) uro PVR (Post Voiding Residual) Bladder Scan 12:00:00 AM EDT eCW1 ([facility]) Remove Impact Cerumen Irrigati 04/28/2021 12:00:00 AM EDT MEDENT ([facility], [facility]) OFFICE OUTPATIENT VISIT 15 MINUTES 04/28/2021 12:00:00 AM EDT MEDENT ([facility], [facility]) OFFICE OUTPATIENT VISIT 15 MINUTES 04/20/2021 12:00:00 AM EDT MEDENT ([facility], [facility]) uro PVR (Post Voiding Residual) Bladder Scan 12:00:00 AM EDT eCW1 ([facility]) ECG ROUTINE ECG W/LEAST 12 LDS W/I&R 03/13/2021 12:00: 00 AM EDT MEDENT ([facility]) PERIODIC PREVENTIVE MED EST PATIENT 40-64YRS 12:00:00 AM EDT MEDENT ([facility]) Results ID Date Data Source [id number] 07/22/2021 08:54:00 AM EDT MEDENT ([facility]) Name Value Range Interpretation Code Description Data Shannan rce(s) Supporting Document(s) Bacteria identified in Urine by Culture Laboratory test result MEDENT ([facility]) ID Date Data Source [id number] 07/22/2021 08:53:00 AM EDT MEDENT ([facility]) Name Value Range Interpretation Code Description Data Shannan rce(s) Supporting Document(s) Glucose [Mass/volume] in Serum or Plasma 97 mg/dL 74-99 MEDENT ([facility]) 100-125 mg/dL PRE-DIABETES/FASTING >126 mg/dL DIABETES/FASTING Urea nitrogen [Mass/volume] in Serum or Plasma 11 mg/dL 7-18 MEDENT ([facility]) Creatinine 1.0 mg/dL 0.6-1.3 [facility] ([facility] Potassium [Moles/volume] in Serum or Plasma 4.1 meq/L 3.5-5.1 MED[facility] ([facility]) Sodium [Moles/volume] in Serum or Plasma 141 meq/L 136-145 [facility] ([facility]) Chloride [Moles/volume] in Serum or Plasma 104 meq/L 98-107 [facility] ([facility]) Carbon dioxide, total [Moles/volume] in Serum or Plasma 31 meq/L 21 -32 [facility] ([facility]) Calcium [Mass/volume] in Serum or Plasma 9.0 mg/dL 8.5-10.1 MED[facility] ([facility]) Glomerular filtration rate/1.73 sq M pre dicted among non-blacks [Volume Rate/Area] in Serum or Plasma by Creatinine-based formula (MDRD) Laboratory test result MEDENT ([facility] ) Glomerular filtration rate/1.73 sq M pre dicted among blacks [Volume Rate/Area] in Serum or Plasma by Creatinine-based formula (MDRD) Laboratory test result [facility] <content>CHRONIC KIDNEY DISEASE STAGING PER NKF</content>
<content></content>
<content>STAGE I & II GFR >= 60 NORMAL TO MILDLY DECREASED</content>
<content>STAGE III GFR 30-59 MODERATELY DECREASED</content>
<content>STAGE IV GFR 15-29 SEVERELY DECREASED</content>
<content>STAGE V GFR <15 VERY LITTLE GFR LEFT</content>
<content>ESRD GFR <15 ON CLINICAL TRIAL MANAGER</content>
<content></content> ID Date Data Source [id number] 07/22/2021 08:53:00 AM EDT [facility] ([facility] Name Value Range Interpretation Code Description Data Shannan rce(s) Supporting Document(s) Leukocytes [#/volume] in Blood by Automated count 7.1 x10*3/UL 4.1-10 .9 [facility] Erythrocytes [#/volume] in Blood by Automated count 4.58 x10*6/UL 4.2 0-6.30 [facility] Hemoglobin [Mass/volume] in Blood 14.4 g/dL 12.0-18.0 [facility] ([facility]) Hematocrit [Volume Fraction] of Blood by Automated count 40.2 % 3 7.0-51.0 MED[facility] ([facility]) MCV 87.7 fL 80.0-97.0 [facility] ([facility]) MCH 31.4 pg 26.0-32.0 [facility] ([facility]) MCHC 35.8 g/dL 31.0-38.0 [facility] Erythrocyte distribution width [Ratio] by Automated count 12.6 % 11.6-13.7 [facility] ([facility]) Platelets [#/volume] in Blood by Automated count 199 x10*3/UL 140-440 [facility] ([facility]) MPV 7.6 FL 7.8-11.0 [facility] ([facility]) Mid % 5.3 % 1.7-9.3 [facility] Lymph % 25.8 % 10.0-58.5 [facility] Neut % 68.9 % 37.0-92.0 [facility] ([facility]) Lymph # 1.8 x10*3/UL 0.6-4.1 [facility] ([facility]) Mid # 0.4 x10*3/UL 0.1-0.6 [facility] ([facility]) Neut # 4.9 x10*3/UL 2.0-7.8 [facility] ([facility]) ID Date Data Source URINE CULTURE 04/15/2021 12:00:00 AM EDT [facility] ([facility]) Name Value Range Interpretation Code Description Data Shannan rce(s) Supporting Document(s) URINE CULTURE [facility] ([facility]) ID Date Data Source UA URINALYSIS 04/15/2021 12:00:00 AM EDT [facility] ([facility]) Name Value Range Interpretation Code Description Data Shannan rce(s) Supporting Document(s) UA URINALYSIS [facility] ([facility]) ID Date Data Source [id number] 03/13/2021 08:53:00 AM EDT MEDENT ([facility] Name Value Range Interpretation Code Description Data Shannan rce(s) Supporting Document(s) Prostate specific Ag [Mass/volume] in Serum or Plasma 1.10 ng/mL [facility] ([facility] This assay was performed on the [employer] EXL using the B- Galactosidase/CPRG methodology and should not be compared interchangeably with other methods. The PSA should not be used alone as a screening test for the presence or absence of malignant disease. ID Date Data Source [id number] 03/13/2021 08:53:00 AM EDT MEDENT ([facility]) Name Value Range Interpretation Code Description Data Shannan rce(s) Supporting Document(s) Cholesterol [Mass/volume] in Serum or Plasma 170 mg/dL 131-200 [facility] ([facility]) Triglyceride [Mass/volume] in Serum or Plasma 105 mg/dL 30-150 [facility] ([facility]) Cholesterol in HDL [Mass/volume] in Serum or Plasma 41 mg/dL 35-60 [facility] ([facility]) Cholesterol in LDL [Mass/volume] in Serum or Plasma by calcu lation 108 CALC 50-159 [facility] ([facility]) ID Date Data Source [id number] 03/13/2021 08:53:00 AM EDT MED[facility] ([facility]) Name Value Range Interpretation Code Description Data Shannan rce(s) Supporting Document(s) Glucose [Mass/volume] in Serum or Plasma 104 mg/dL 74-99 [facility] ([facility]) 100-125 mg/dL PRE-DIABETES/FASTING >126 mg/dL DIABETES/FASTING Urea nitrogen [Mass/volume] in Serum or Plasma 15 mg/dL 7-18 [facility] ([facility]) Creatinine 1.0 mg/dL 0.6-1.3 [facility] ([facility]) Sodium [Moles/volume] in Serum or Plasma 145 meq/L 136-145 [facility] ([facility]) Potassium [Moles/volume] in Serum or Plasma 4.3 meq/L 3.5-5.1 [facility] ([facility]) Chloride [Moles/volume] in Serum or Plasma 107 meq/L 98-107 [facility] ([facility]) Carbon dioxide, total [Moles/volume] in Serum or Plasma 27 meq/L 21 -32 [facility] ([facility]) Calcium [Mass/volume] in Serum or Plasma 9.2 mg/dL 8.5-10.1 [facility] ([facility]) Alkaline phosphatase isoenzyme [Units/volume] in Serum or Pl asma 45 mg/dL 46-116 [facility] ([facility]) Total Bilirubin 0.7 mg/dL 0.2-1.0 [facility] ([facility]) Aspartate aminotransferase [Enzymatic activity/volume] in Serum or Plasma 22 U/L 15-37 [facility] ([facility] ) Albumin [Mass/volume] in Serum or Plasma 4.2 g/dL 3.4-5.0 [facility] Alanine aminotransferase [Enzymatic activity/volume] in Seru m or Plasma 34 U/L 12-78 [facility] ([facility]) Proteinase 3 Ab [Units/volume] in Serum 7.1 g/dL 6.4-8.2 [facility] A/G Ratio 1.45 CALC 1.00-1.90 [facility] ([facility]) Glomerular filtration rate/1.73 sq M pre dicted among non-blacks [Volume Rate/Area] in Serum or Plasma by Creatinine-based formula (MDRD) Laboratory test result [facility] Glomerular filtration rate/1.73 sq M pre dicted among blacks [Volume Rate/Area] in Serum or Plasma by Creatinine-based formula (MDRD) Laboratory test result [facility] <content>CHRONIC KIDNEY DISEASE STAGING PER NKF</content>
<content></content>
<content>STAGE I & II GFR >= 60 NORMAL TO MILDLY DECREASED</content>
<content>STAGE III GFR 30-59 MODERATELY DECREASED</content>
<content>STAGE IV GFR 15-29 SEVERELY DECREASED</content>
<content>STAGE V GFR <15 VERY LITTLE GFR LEFT</content>
<content>ESRD GFR <15 ON CLINICAL TRIAL MANAGER</content>
<content></content> ID Date Data Source [id number] 03/13/2021 08:53:00 AM EDT [facility] ([facility]) Name Value Range Interpretation Code Description Data Shannan rce(s) Supporting Document(s) Hemoglobin A1c/Hemoglobin.total in Blood 4.9 % [facility] Lab Result Notes: Pre-Diabetes 5.7 - 6.4 % Diabetes = or > 6.5% Glucose mean value [Mass/volume] in Blood Estimated fr om glycated hemoglobin 94 mg/dL 60-110 [facility] ([facility] ) ID Date Data Source [id number] 03/13/2021 08:53:00 AM EDT [facility] ([facility]) Name Value Range Interpretation Code Description Data Shannan rce(s) Supporting Document(s) Leukocytes [#/volume] in Blood by Automated count 6.9 x10*3/UL 4.1-10 .9 [facility] ([facility]) Erythrocytes [#/volume] in Blood by Automated count 4.67 x10*6/UL 4.2 0-6.30 [facility] ([facility]) Hemoglobin [Mass/volume] in Blood 14.7 g/dL 12.0-18.0 [facility] ([facility]) Hematocrit [Volume Fraction] of Blood by Automated count 40.9 % 3 7.0-51.0 [facility] ([facility]) MCV 87.6 fL 80.0-97.0 [facility] ([facility]) MCH 31.5 pg 26.0-32.0 [facility] ([facility]) MCHC 35.9 g/dL 31.0-38.0 [facility] ([facility]) Erythrocyte distribution width [Ratio] by Automated count 12.3 % 11.6-13.7 [facility] ([facility]) Platelets [#/volume] in Blood by Automated count 215 x10*3/UL 140-440 [facility] ([facility]) MPV 8.1 FL 7.8-11.0 [facility] ([facility]) Lymph % 27.8 % 10.0-58.5 [facility] ([facility]) Mid % 5.4 % 1.7-9.3 [facility] Neut % 66.8 % 37.0-92.0 [facility] ([facility]) Mid # 0.4 x10*3/UL 0.1-0.6 [facility] ([facility]) Lymph # 1.9 x10*3/UL 0.6-4.1 [facility] ([facility]) Neut # 4.6 x10*3/UL 2.0-7.8 [facility]) ID Date Data Source [id number] 11/13/2020 09:52:00 AM EST [facility] ([facility]) Name Value Range Interpretation Code Description Data Shannan rce(s) Supporting Document(s) Creatinine For GFR 1.06 mg/dL 0.70-1.30 [facility] ([facility]) Glomerular Filtration Rate Laboratory test result [facility] ([facility]) <content>Units are mL/min/1.73 m2</content>
<content></content>
<content>Chronic Kidney Disease Staging per NKF:</content>
<content></content>
<content>Stage I & II GFR >=60 Normal to Mildly Decreased</content>
<content>Stage III GFR 30- 59 Moderately Decreased</content>
<content>Stage IV GFR 15-29 Severely Decreased</content>
<content>Stage V GFR <15 Very Little GFR Left</content>
<content>ESRD GFR <15 on CLINICAL TRIAL MANAGER</content>
<content></content> ID Date Data Source [id number] 11/13/2020 09:52:00 AM EST [facility] ([facility]) Name Value Range Interpretation Code Description Data Shannan rce(s) Supporting Document(s) Urea nitrogen [Mass/volume] in Serum or Plasma 14 mg/dL 7-18 [facility] ID Date Data Source [id number] 08/03/2020 10:45:00 AM EDT [facility] Name Value Range Interpretation Code Description Data Shannan rce(s) Supporting Document(s) SARS coronavirus 2 RNA [facility] This lab was ordered by [facility] and reported by [facility]. ID Date Data Source [id number] 07/30/2020 09:26:00 AM EDT [facility] ([facility]) Name Value Range Interpretation Code Description Data Shannan rce(s) Supporting Document(s) Glucose, Fasting 110 mg/dL 70-100 [facility] ([facility]) Blood Urea Nitrogen 13 mg/dL 7-18 MED[facility] ([facility]) Creatinine For GFR 0.92 mg/dL 0.70-1.30 [facility] ([facility]) Potassium Serum 4.1 meq/L 3.5-5.1 [facility] ([facility]) Sodium Level 139 meq/L 136-145 [facility] ([facility]) Glomerular Filtration Rate Laboratory test result [facility] ([facility]) <content>Units are mL/min/1.73 m2</content>
<content></content>
<content>Chronic Kidney Disease Staging per NKF:</content>
<content></content>
<content>Stage I & II GFR >=60 Normal to Mildly Decreased</content>
<content>Stage III GFR 30- 59 Moderately Decreased</content>
<content>Stage IV GFR 15-29 Severely Decreased</content>
<content>Stage V GFR <15 Very Little GFR Left</content>
<content>ESRD GFR <15 on CLINICAL TRIAL MANAGER</content>
<content></content> Carbon Dioxide Level 26 meq/L 21-32 [facility] Chloride Level 107 meq/L 98-107 [facility] ([facility]) Calcium Level 9.6 mg/dL 8.8-10.2 [facility] ([facility]) Anion Gap 6 meq/L 8-16 [facility] ([facility] ID Date Data Source [id number] 07/30/2020 09:26:00 AM EDT [facility] ([facility]) Name Value Range Interpretation Code Description Data Shannan rce(s) Supporting Document(s) Red Blood Count 4.87 10 4.30-6.10 [facility] ([facility]) White Blood Count 7.5 10 4.0-10.0 [facility] ([facility]) Hematocrit 43.0 % 42.0-52.0 [facility] Hemoglobin 14.7 g/dL 13.5-17.5 [facility]) Mean Corpuscular Volume 88.3 fl 80.0-96.0 [facility] ([facility]) Red Cell Distribution Width 12.4 % 11.5-14.5 ME DENT ([facility]) Platelet Count, Automated 222 10 150-450 MEDE NT ([facility]) Mean Corpuscular Hemoglobin 30.2 pg 27.0-33.0 [facility] ([facility]) Mean Corpuscular HGB Conc 34.2 g/dL 32.0-36.5 MED[facility] NT ([facility]) Winston % 5.9 % 0.0-5.0 [facility] ([facility]) Lymph % 30.3 % 24.0-44.0 [facility] ([facility]) Neutrophils % 59.7 % 36.0-66.0 [facility] ([facility]) Baso % 0.5 % 0.0-1.0 [facility] ([facility]) Eos % 3.1 % 0.0-3.0 [facility] ([facility]) Immature Granulocyte % 0.5 % 0-3.0 [facility] ([facility]) Nucleated Red Blood Cell % 0.0 % 0-0 MED E[facility] ([facility]) Neutrophils # 4.5 10 1.5-8.5 [facility] Eos # 0.2 10 0.0-0.5 [facility] ([facility]) Lymph # 2.3 10 1.5-5.0 [facility] ([facility]) Winston # 0.4 10 0.0-0.8 [facility] ([facility]) Baso # 0.0 10 0.0-0.2 [facility] ([facility]) Procedure Social History Code Duration Value Status Description Data Source(s ) Smoking 06/26/2021 12:00:00 AM EDT UNK completed eCW1 ([facility]) Smoking 06/26/2021 12:00:00 AM EDT UNK completed eCW1 ([facility]) Smoking 06/09/2021 12:00:00 AM EDT UNK completed eCW1 ([facility]) Smoking 06/09/2021 12:00:00 AM EDT UNK completed eCW1 ([facility]) Smoking 04/28/2021 12:00:00 AM EDT Patient has never smoked co mpleted Patient has never smoked MED[facility] ([facility], [facility]) Smoking 04/15/2021 12:00:00 AM EDT UNK completed eCW1 ([facility]) Smoking 04/15/2021 12:00:00 AM EDT UNK completed eCW1 ([facility]) Vital Signs ID Date Data Source UNK Name Value Range Interpretation Code Description Data Source(s) Body weight 205 [lb_av] 205 [lb_av] eCW1 ([facility]) Body height 70 [in_i] 70 [in_i] eCW1 ([facility]) Body mass index (BMI) [Ratio] 29.41 kg/m2 29.41 kg/m2 eCW1 ([facility]) Heart rate 60 /min 60 /min eCW1 ([facility]) Respiratory rate 18 /min 18 /min eCW1 ([facility]) Body temperature 96.1 [degF] 96.1 [degF] eCW1 ( [facility]) Systolic blood pressure 138 mm[Hg] 138 mm[Hg] e CW1 ([facility]) Diastolic blood pressure 68 mm[Hg] 68 mm[Hg] eCW1 ([facility]) Body weight 205 [lb_av] 205 [lb_av] eCW1 ([facility]) Body weight 92.99 kg 92.99 kg eCW1 ([facility]) Body height 70 [in_i] 70 [in_i] eCW1 ([facility]) Body mass index (BMI) [Ratio] 29.41 kg/m2 29.41 kg/m2 eCW1 ([facility]) Heart rate 65 /min 65 /min eCW1 ([facility]) Respiratory rate 18 /min 18 /min eCW1 ([facility]) Body temperature 98.2 [degF] 98.2 [degF] eCW1 ( [facility]) Systolic blood pressure 126 mm[Hg] 126 mm[Hg] e CW1 ([facility]) Diastolic blood pressure 70 mm[Hg] 70 mm[Hg] eCW1 ([facility]) Systolic blood pressure 122 mm[Hg] 122 mm[Hg] M EDENT ([facility], [facility]) Diastolic blood pressure 80 mm[Hg] 80 mm[Hg] MEDENT ([facility], [facility]) Heart rate 55 /min 55 /min [facility] ([facility]) Respiratory rate 15 /min 15 /min [facility] ( [facility], [facility]) Oxygen saturation in Arterial blood by Pulse oximetry 97 % 97 % [facility] ([facility], [facility]) Body temperature 96.8 [degF] 96.8 [degF] MED[facility] ([facility], [facility]) Body weight 200.00 [lb_av] 200.00 [lb_av] MEDEN T ([facility], [facility]) Body height 70 [in_i] 70 [in_i] MEDENT ([facility], [facility]) 5'10" Body mass index (BMI) [Ratio] 28.7 kg/m2 28.7 k g/m2 MED[facility] ([facility], [facility]) Heart rate 68 /min 68 /min [facility] ([facility]) Respiratory rate 17 /min 17 /min [facility] ( [facility], [facility]) Oxygen saturation in Arterial blood by Pulse oximetry 97 % 97 % [facility] ([facility], [facility]) Systolic blood pressure 109 mm[Hg] 109 mm[Hg] M EDENT ([facility], [facility]) Body temperature 98.9 [degF] 98.9 [degF] MED[facility] ([facility], [facility]) Body height 70 [in_i] 70 [in_i] MEDENT ([facility], [facility]) 5'10" Body weight 205.00 [lb_av] 205.00 [lb_av] MEDEN T ([facility], [facility]) Body mass index (BMI) [Ratio] 29.4 kg/m2 29.4 k g/m2 MEDENT ([facility]) Diastolic blood pressure 73 mm[Hg] 73 mm[Hg] [facility] ([facility]) Body weight 203 [lb_av] 203 [lb_av] eCW1 ([facility]) Body height 70 [in_i] 70 [in_i] eCW1 ([facility]) Body mass index (BMI) [Ratio] 29.12 kg/m2 29.12 kg/m2 eCW1 ([facility]) Heart rate 56 /min 56 /min eCW1 ([facility]) Respiratory rate 18 /min 18 /min eCW1 ([facility]) Body temperature 97.5 [degF] 97.5 [degF] eCW1 ( [facility]) Systolic blood pressure 128 mm[Hg] 128 mm[Hg] e CW1 ([facility]) Diastolic blood pressure 76 mm[Hg] 76 mm[Hg] eCW1 ([facility]) Diastolic blood pressure 68 mm[Hg] 68 mm[Hg] MED[facility] ([facility]) Heart rate 76 /min 76 /min MED[facility] ([facility]) Body height 69.25 [in_i] 69.25 [in_i] [facility] ([facility]) 5'9.25" Body weight 203.00 [lb_av] 203.00 [lb_av] MEDEN T ([facility]) Systolic blood pressure 100 mm[Hg] 100 mm[Hg] M EDENT ([facility]) Body mass index (BMI) [Ratio] 29.8 kg/m2 29.8 k g/m2 [facility] ([facility]) Body weight 219.00 [lb_av] 219.00 [lb_av] MEDEN T ([facility]) Systolic blood pressure 138 mm[Hg] 138 mm[Hg] M EDENT ([facility]) Diastolic blood pressure 82 mm[Hg] 82 mm[Hg] [facility] ([facility]) Heart rate 74 /min 74 /min [facility] ([facility]) Body height 69.25 [in_i] 69.25 [in_i] [facility] ([facility]) 5'9.25" Oxygen saturation in Arterial blood by Pulse oximetry 97 % 97 % [facility] ([facility]) RM Air Body mass index (BMI) [Ratio] 32.1 kg/m2 32.1 k g/m2 [facility] ([facility]) Patient Treatment Plan of Care Planned Activity Planned Date Details Description Data Source (s) Tamsulosin hydrochloride 0.4 MG Oral Capsule [Flomax] 07/03/2021 12:00:00 AM EDT eCW1 ([facility]) Tamsulosin hydrochloride 0.4 MG Oral Capsule [Flomax] 06/26/2021 12:00:00 AM EDT eCW1 ([facility]) Tamsulosin hydrochloride 0.4 MG Oral Capsule [Flomax] 06/26/2021 12:00:00 AM EDT eCW1 ([facility]) Sulfamethoxazole 800 MG / Trimethoprim 160 MG Oral Tab let [Bactrim] 06/09/2021 12:00:00 AM EDT eCW1 ([facility]) Sulfamethoxazole 800 MG / Trimethoprim 160 MG Oral Tab let [Bactrim] 06/09/2021 12:00:00 AM EDT eCW1 ([facility]) 24 HR Oxybutynin chloride 10 MG Extended Release Oral Tablet 04/15/2021 12:00:00 AM EDT eCW1 ([facility]) 24 HR Oxybutynin chloride 10 MG Extended Release Oral Tablet 04/15/2021 12:00:00 AM EDT eCW1 ([facility])
--- OUTSIDE RECORDS SUMMARY | 2021-07-29 09:43 | CCD | Continuity of Care Document ---
Author Author Eduar Oliva MD Organization Unknown Address [address] [facility] [address] [place] [address] Phone [phone] Care Team Providers Care Sitecore Developer Name Role Phone Marshall Oliva JR, MD AUTM Unavailable Mayo Guo DPM AUTM [phone] AttCarol yan AUTM [phone] Beau Pink AUTM [phone] Problems Active Problems Provider Date Pure hypercholesterolemia [...] Use Start: Unknown Patient has never smoked Allergies, Adverse Reactions, Alerts Description No Known Drug Allergies Medications Active Medications SIG Qnty Indications Ordering Provide r Date Viagra 25mg Tablets 1 by mouth 30min prior to need 5tabs Marshall Oliva MD 07/24/2019 History Medications Alfuzosin HCL ER 10mg Tablets ER 2 4HR 1 by mouth every day 30tabs Marshall Oliva MD 12/02/2020 - 03/13/2021 Medications Administered in Office Medication SIG Qnty Indications Ordering Provider Date Immunization Adminstration,1 Vaccine/Tox oid Injection Marshall Oliva MD 2019 Immunization Adminstration,1 Vaccine/Tox oid Injection Marshall Oliva MD 2018 Immunizations CPT Code Status Date Vaccine Lot # [id number] Given 06/27/2020 Influenza Vaccin e Quadrivalent Preser/Antibiotic Free Im Use [id number] Given 08/02/2019 Influenza Vaccin e Quadrivalent Preser/Antibiotic Free Im Use [id number] [id number] Given 08/31/2010 Influenza Virus Vaccine Vital Signs [...] H/L Range Note Complete Blood Count 03/13/2021 [facility] [employer] Drawer: Dr Marshall Oliva [place], [place] [id number] [phone] WBC 6.9 x10*3/UL 4.1 - 10.9 RBC [...] 4.6 x10*3/UL 2.0 - 7.8 A1c 03/13/2021 [facility] , [place] Drawer: [place] [address] [phone] Hba1c 4.9 % <5.7 1 Est Avg Glucose 94 mg/dL 60 - 110 Comprehensive Chem Profile 03/13/2021 [facility] [place] Drawer: [place] [address] [phone] Glucose 104 mg/dL High 74 - 99 [...] 60 mL/min >60 3 Lipid Profile 03/13/2021 [facility] [place] Drawer: [place] [address] [phone] Cholesterol 170 mg/dL 131 - 200 Triglycerides 105 mg/dL 30 - 150 HDL Cholesterol 41 mg/dL 35 - 60 LDL (Calculated) 108 CALC 50 - 159 Laboratory test finding 03/13/2021 [facility], [place] Drawer: [place] [address] [phone] PSA 1.10 ng/mL <4.00 4 Laboratory test finding 11/13/[address], [place] [id number] [phone] Blood Urea Nitrogen 14 mg/dL Normal 7-18 Creatinine With GFR 11/13/2020 [facility] [address] [place] [address] [phone] Creatinine For GFR 1.06 mg/dL Normal 0.70-1.30 Glomerular Filtration Rate > 60.0 Normal >49 5 1 Lab Result Notes: Pre-Diabetes 5.7 - [...] LITTLE GFR LEFT ESRD GFR <15 ON NAILER MACHINE 4 This assay was performed on the Siemens Dimension EXL using the B- Galactosidase/CPRG methodology and should not be compared interchangeably with other methods. The PSA should not be used alone as a screening test for the presence or absence of malignant disease. 5 Units are mL/min/1.73 m2 Chronic Kidney Disease Staging per NKF: Stage I & II GFR >=60 Normal to Mildly Decreased Stage III GFR 30-59 Moderately Decreased Stage IV GFR 15-29 Severely Decreased Stage V GFR <15 Very Little GFR Left ESRD GFR <15 on NAILER MACHINE Procedures Date Code Description Status 03/13/2021 49925 Est Prevent Med (40-64Yrs) Compl eted 03/13/2021 11954 EKG/Interpretation & Report Comp leted 08/16/2018 [id number] Colonoscopy Completed 06/03/2015 [id number] Colonoscopy Completed 05/17/2014 [id number] Colonoscopy Completed 04/26/2007 [id number] Colonoscopy Completed Medical Devices Description No Information Available Encounters Type Date Location Provider Dx Diagnosis Office Visit 03/13/2021 8:20a [facility] Marshall Oliva MD Z00.01 Encounter [...] 9:00 am - Marshall Oliva MD at [facility] * 05/25/2021 2:20 pm - ROMAN Sanchez at [facility] 03/13/2021 - Marshall Oliva MD* [...] CONSULT FOR BPH, OVERACTIVE BLADDER Creat ed [facility] [address] , [place] [address] [phone]
[2021-07-29] MEDS ORDERED: KETOROLAC 60MG 2ML VIAL As Ordered ONE (12:26)
[2021-07-29] MEDS ORDERED: dexameTHASONE 4 MG/ML 1ML VIAL (J1100 PER 1MG) As Ordered ONE (12:26)
[2021-07-29] MEDS ORDERED: ONDANSETRON 4MG/2ML VIAL As Ordered ONE (12:26)
[2021-07-29] MEDS ORDERED: ACETAMINOPHEN 1000MG 100ML IV BTL (OFIRMEV) (J0131 PER 10MG) As Ordered ONE (12:28)
[2021-07-29] MEDS ORDERED: SUGAMMADEX SODIUM 500 MG/5 ML VIAL (BRIDION) As Ordered ONE (12:41)
[2021-07-29 13:50] VITALS: BP 120/78
[2021-07-29] MEDS ORDERED: oxyCODONE 5MG TAB PO PRN (14:10)
[2021-07-29] MEDS ORDERED: LR 1,000 ML IV SCH (14:10)
[2021-07-29] MEDS ORDERED: fentaNYL 100 MCG/2 ML INJECTION (J3010) IV PRN (14:10)
[2021-07-29] MEDS ORDERED: ONDANSETRON 4MG/2ML VIAL IV PRN (14:10)
[2021-07-29] MEDS ORDERED: ACETAMINOPHEN TAB 650MG DOSE (2X325MG) PO PRN (14:15)
--- NOTE | 2021-07-29 15:23 | RO ---
OPERATIVE NOTE DATE OF OPERATION: 07/29/2021 PREOPERATIVE DIAGNOSIS: Bladder tumor. POSTOPERATIVE DIAGNOSIS: Bladder tumor. PROCEDURE: Cystoscopy; transurethral resection of bladder tumor (less than 2 cm). SURGEON: Israel Ingram MD ANNEALING OVEN OPERATOR: None. ANESTHESIA: General. OPERATIVE INDICATIONS: This 65-year-old male was found to have a small bladder tumor just inside the bladder neck on recent cystoscopy. He is brought to the operating room today for treatment. DESCRIPTION OF PROCEDURE: The patient was brought to the operating room and general anesthesia was induced. Prophylactic antibiotics were infused. He was then placed in dorsal lithotomy position and prepped and draped in usual sterile fashion. A rigid cystoscope was inserted in the urethral meatus and advanced into the bladder. The bladder was thoroughly examined with 30 ad 70-degree lenses and very small papillary tumor was seen just inside the bladder neck at about 5 o'clock. This was just distal to the trigone. I then traded out the cystoscope for resectoscope and resected the tumor using bipolar loop. This was sent for pathologic analysis. I then cauterized the base of resection. Once adequate hemostasis the bladder was drained of all fluids. The resectoscope was removed and this marked the conclusion of the procedure. The patient was taken out of the dorsal lithotomy position, awakened from anesthesia and transferred to the recovery room in stable condition. ESTIMATED BLOOD LOSS: 5 mL. COMPLICATIONS: None. SPECIMEN: Bladder tumor PLAN: The patient will follow up in urology clinic next week for pathology results. IZAIAH
== END 2021-07-29 14:44 | disposition home or self-care (01) ==
LOC: M SDC 09:34
PROVIDERS: ATTEND Urology
DX: D30.3 Benign neoplasm of bladder (principal); N40.0 Benign prostatic hyperplasia without lower urinary tract symptoms; Z85.820 Personal history of malignant melanoma of skin
CPT/HCPCS: 52234; 88307; J0131; J0744; J1100; J1885; J2250; J2405; J3010

== ENCOUNTER 2021-08-19 13:23 | Outpatient (RCR) | payer BC ==
[~2021-08-19 13:23] MED LIST changes: -CIPROFLOXACIN 400 MG in IV 1 EA IV ONE; -LIDOCAINE 2% 100MG/5ML SDV (FOR ANES.) As Ordered ONE; -LR 1,000 ML IV ONE; -MIDAZOLAM INJ 2MG/2ML VIAL (J2250 PER 1MG) As Ordered ONE; -ROCURONIUM BROMIDE 50 MG/5 ML VIAL As Ordered ONE; -fentaNYL 100 MCG/2 ML INJECTION (J3010) As Ordered ONE; -propofoL 200 MG/20 ML VIAL As Ordered ONE
== END 2021-09-08 ==
LOC: M OUTALCOH 13:23
PROVIDERS: ATTEND Psychiatry & Neurology Psychiatry
DX: F10.20 Alcohol dependence, uncomplicated (principal)

== ENCOUNTER 2021-09-23 13:07 | Outpatient (RCR) | payer BC | END 2021-10-09 | LOC: M OUTALCOH 13:07 | PROVIDERS: ATTEND Psychiatry & Neurology Psychiatry | DX: F10.20 Alcohol dependence, uncomplicated (principal) ==

== ENCOUNTER → 2021-10-15 | Outpatient (CLI) | payer BC | LOC: M LABSMTC 09:57 | PROVIDERS: ATTEND Pediatrics | DX: Z20.822 Contact with and (suspected) exposure to COVID-19 (principal) | CPT/HCPCS: C9803; U0003 ==

== ENCOUNTER 2021-10-28 07:54 | Outpatient (RCR) | payer BC | END 2021-11-09 | LOC: M OUTALCOH 07:54 | PROVIDERS: ATTEND Psychiatry & Neurology Psychiatry | DX: F10.20 Alcohol dependence, uncomplicated (principal) ==

== ENCOUNTER → 2021-11-25 | Outpatient (CLI) | payer BC | LOC: M WHC 07:08 | PROVIDERS: ATTEND Internal Medicine | DX: R22.1 Localized swelling, mass and lump, neck (principal) ==

== ENCOUNTER 2021-12-09 08:03 | Outpatient (RCR) | payer BC ==
[~2021-12-09 08:03] MED LIST changes: -ISOVUE-370 76% 100ML VIAL As Ordered ONE
== END 2022-01-07 ==
LOC: M OUTALCOH 08:03
PROVIDERS: ATTEND Psychiatry & Neurology Psychiatry
DX: F10.20 Alcohol dependence, uncomplicated (principal)

== ENCOUNTER → 2021-12-09 | Outpatient (CLI) | payer BC ==
[~2021-12-09] MED LIST changes: +ISOVUE-370 76% 100ML VIAL As Ordered ONE
== END ==
LOC: M RAD 13:31
PROVIDERS: ATTEND Internal Medicine
DX: R59.0 Localized enlarged lymph nodes (principal)
CPT/HCPCS: 70491; Q9967

== ENCOUNTER → 2021-12-10 | Outpatient (REF) | payer BC ==
[2021-12-10 13:51] LABS: INR 0.95; PROTHROMBIN TIME 13.1 SECONDS (12.7-14.5)
[2021-12-10 13:52] LABS: PARTIAL THROMBOPLASTIN TIME 33.6 SECONDS (25.9-37.0)
[2021-12-10 13:57] LABS: APPEARANCE, URINE CLEAR (CLEAR); BACTERIA, URINE AUTO NEGATIVE (NEGATIVE); BILIRUBIN, URINE AUTO NEGATIVE (NEGATIVE); BLOOD, URINE BLOOD NEGATIVE (NEGATIVE); CALCIUM OXALATE CRYSTALS SMALL; COLOR, URINE YELLOW (YELLOW); GLUCOSE, URINE (UA) AUTO NEGATIVE (NEGATIVE); KETONE, URINE AUTO TRACE mg/dL (NEGATIVE); LEUKOCYTE ESTERASE, URINE AUTO NEGATIVE (NEGATIVE); NITRITE, URINE AUTO NEGATIVE (NEGATIVE); PROTEIN, URINE AUTO NEGATIVE (NEGATIVE); RBC, URINE AUTO 1 /HPF (0-3); SPECIFIC GRAVITY URINE AUTO 1.016 (1.002-1.035); SQUAMOUS EPITHELIAL CELL UR AU 0 /HPF (0-6); UROBILINOGEN, URINE AUTO 0.2 mg/dL (0.0-2.0); WBC, URINE AUTO 0 /HPF (0-3)
== END ==
LOC: M LAB REF 12:43
PROVIDERS: ATTEND Internal Medicine
DX: Z01.810 Encounter for preprocedural cardiovascular examination (principal); M17.11 Unilateral primary osteoarthritis, right knee

== ENCOUNTER → 2021-12-16 | Outpatient (CLI) | payer BC | LOC: M PLAIMG 07:19 | DX: M17.11 Unilateral primary osteoarthritis, right knee (principal) ==

== ENCOUNTER → 2021-12-17 | Outpatient (CLI) | payer BC | LOC: M LABSMTC 09:25 | DX: Z01.812 Encounter for preprocedural laboratory examination (principal); Z20.822 Contact with and (suspected) exposure to COVID-19 ==

== ENCOUNTER 2022-01-27 08:00 | Outpatient (RCR) | payer BC ==
[2022-02-08] MEDS ORDERED: TRAM50TA2 PO (10:19)
[2022-02-08] MEDS ORDERED: OXYC-517 PO (10:19)
== END 2022-02-06 ==
LOC: M OUTALCOH 08:00
PROVIDERS: ATTEND Psychiatry & Neurology Psychiatry
DX: F10.20 Alcohol dependence, uncomplicated (principal)

== ENCOUNTER → 2022-02-08 | Outpatient (REF) | payer BC ==
[~2022-02-08] MED LIST changes: +OXYC-517 PO; +TRAM50TA2 PO
[2022-02-08 17:35] LABS: APPEARANCE, URINE CLEAR (CLEAR); BACTERIA, URINE AUTO NEGATIVE (NEGATIVE); BILIRUBIN, URINE AUTO NEGATIVE (NEGATIVE); BLOOD, URINE BLOOD NEGATIVE (NEGATIVE); COLOR, URINE YELLOW (YELLOW); GLUCOSE, URINE (UA) AUTO NEGATIVE (NEGATIVE); KETONE, URINE AUTO NEGATIVE (NEGATIVE); LEUKOCYTE ESTERASE, URINE AUTO NEGATIVE (NEGATIVE); MUCUS, URINE SMALL (NEGATIVE); NITRITE, URINE AUTO NEGATIVE (NEGATIVE); PROTEIN, URINE AUTO NEGATIVE (NEGATIVE); RBC, URINE AUTO 0 /HPF (0-3); SPECIFIC GRAVITY URINE AUTO 1.021 (1.002-1.035); SQUAMOUS EPITHELIAL CELL UR AU 0 /HPF (0-6); UROBILINOGEN, URINE AUTO 0.2 mg/dL (0.0-2.0); WBC, URINE AUTO 1 /HPF (0-3)
== END ==
LOC: M SMT 16:47
PROVIDERS: ATTEND Urology
DX: N40.1 Benign prostatic hyperplasia with lower urinary tract symptoms (principal); R39.9 Unspecified symptoms and signs involving the genitourinary system

== ENCOUNTER → 2022-02-17 | Outpatient (CLI) | payer BC | LOC: M LABSMTC 09:27 | PROVIDERS: ATTEND Anesthesiology | DX: Z01.818 Encounter for other preprocedural examination (principal); Z11.52 Encounter for screening for COVID-19 ==

== ENCOUNTER 2022-02-22 09:35 | Day surgery (SDC) | payer BC ==
[~2022-02-22] VITALS: Ht 177.8 cm; Wt 87.5 kg
[~2022-02-22 09:35] MED LIST changes: +NS 1,000 ML IV ONE
[2022-02-22] MEDS ORDERED: LIDOCAINE 2% 100MG/5ML SDV (FOR ANES.) As Ordered ONE (09:56)
[2022-02-22] MEDS ORDERED: propofoL 200 MG/20 ML VIAL As Ordered ONE (09:56)
[2022-02-22 12:59] VITALS: BP 134/60
== END 2022-02-22 12:57 | disposition home or self-care (01) ==
LOC: M OPP 09:35
PROVIDERS: ATTEND Internal Medicine Gastroenterology
DX: Z12.11 Encounter for screening for malignant neoplasm of colon (principal); Z86.010 Personal history of colon polyps; K62.1 Rectal polyp; K64.0 First degree hemorrhoids; Z79.891 Long term (current) use of opiate analgesic; Z79.899 Other long term (current) drug therapy

== ENCOUNTER → 2022-08-22 | Outpatient (CLI) | payer BC ==
[~2022-08-22] MED LIST changes: -NS 1,000 ML IV ONE
== END ==
LOC: M LABSMTC 10:01
PROVIDERS: ATTEND Orthopaedic Surgery
DX: Z20.822 Contact with and (suspected) exposure to COVID-19 (principal)

== ENCOUNTER → 2023-03-21 | Outpatient (CLI) | payer OTHER | LOC: M PLAIMG 16:22 | DX: M65.161 Other infective (teno)synovitis, right knee (principal) ==

== ENCOUNTER → 2023-03-28 | Outpatient (CLI) | payer OTHER ==
[2023-03-28 15:29] LABS: APPEARANCE, URINE CLEAR (CLEAR); BACTERIA, URINE AUTO NEGATIVE (NEGATIVE); BASO % 0.5 % (0.0-1.0); BILIRUBIN, URINE AUTO NEGATIVE (NEGATIVE); BLOOD, URINE BLOOD NEGATIVE (NEGATIVE); COLOR, URINE YELLOW (YELLOW); EOS # 0.2 10^3/uL (0.0-0.5); GLUCOSE, URINE (UA) AUTO NEGATIVE (NEGATIVE); HEMATOCRIT 42.3 % (42.0-52.0); KETONE, URINE AUTO NEGATIVE (NEGATIVE); LEUKOCYTE ESTERASE, URINE AUTO NEGATIVE (NEGATIVE); LYMPH # 2.1 10^3/uL (1.5-5.0); LYMPH % 27.9 % (24.0-44.0); MEAN CORPUSCULAR HEMOGLOBIN 31.4 pg (27.0-33.0); MEAN CORPUSCULAR HGB CONC 35.5 g/dl (32.0-36.5); MEAN CORPUSCULAR VOLUME 88.5 fl (80.0-96.0); MONO # 0.4 10^3/uL (0.0-0.8); MONO % 5.4 % (2.0-8.0); MUCUS, URINE SMALL (NEGATIVE); NEUTROPHILS # 4.9 10^3/uL (1.5-8.5); NEUTROPHILS % 63.8 % (36.0-66.0); NITRITE, URINE AUTO NEGATIVE (NEGATIVE); PLATELET COUNT, AUTOMATED 233 10^3/uL (150-450); PROTEIN, URINE AUTO NEGATIVE (NEGATIVE); RBC, URINE AUTO 0 /HPF (0-3); RED BLOOD COUNT 4.78 10^6/uL (4.30-6.10); SPECIFIC GRAVITY URINE AUTO 1.011 (1.002-1.035); SQUAMOUS EPITHELIAL CELL UR AU 0 /HPF (0-6); UROBILINOGEN, URINE AUTO 0.2 mg/dL (0.0-2.0); WBC, URINE AUTO 0 /HPF (0-3); WHITE BLOOD COUNT 7.6 10^3/uL (4.0-10.0)
[2023-03-28 15:48] LABS: ERYTHROCYTE SEDIMENTATION RATE 9 mm/hr (0-20)
[2023-03-28 15:52] LABS: C REACTIVE PROTEIN QUANTITATIV < 0.40 MG/DL (<1.0)
[2023-03-28 15:54] LABS: ALBUMIN 4.4 G/DL (3.2-5.2); ALKALINE PHOSPHATASE 40 U/L (46-116); ALT/SGPT 15 U/L (7.0-40); AST/SGOT 9 U/L (<34); BILIRUBIN,TOTAL 1.1 MG/DL (0.3-1.2); BLOOD UREA NITROGEN 12 MG/DL (9-23); CALCIUM LEVEL 9.2 MG/DL (8.3-10.6); CARBON DIOXIDE LEVEL 27 MMOL/L (20-31); CHLORIDE LEVEL 106 MMOL/L (98-107); CREATININE FOR GFR 0.95 MG/DL (0.70-1.30); GLOMERULAR FILTRATION RATE > 60.0 (>49); GLUCOSE, FASTING 93 MG/DL (74-106); POTASSIUM SERUM 3.8 MMOL/L (3.5-5.1); SODIUM LEVEL 141 MMOL/L (136-145); TOTAL PROTEIN 7.1 G/DL (5.7-8.2)
[2023-03-28 15:58] LABS: INR 1.06
== END ==
LOC: M RAD 14:42
DX: Z01.818 Encounter for other preprocedural examination (principal); M65.161 Other infective (teno)synovitis, right knee; Z96.651 Presence of right artificial knee joint; R94.31 Abnormal electrocardiogram [ECG] [EKG]

== ENCOUNTER → 2023-07-01 | Outpatient (CLI) | payer OTHER | LOC: M SOG 08:36 | PROVIDERS: ATTEND Physician Assistant | DX: M18.11 Unilateral primary osteoarthritis of first carpometacarpal joint, right hand (principal) ==

== ENCOUNTER 2023-07-20 12:24 | Day surgery (SDC) | payer OTHER ==
[~2023-07-20] VITALS: Ht 177.8 cm; Wt 97.8 kg
[~2023-07-20 12:24] MED LIST changes: +AMBI10TA PO; +ceFAZolin SOD 2 GM in IV 1 EA IV ONE
[2023-07-20] MEDS ORDERED: LR 1,000 ML IV SCH ×2 (12:30→15:15)
[2023-07-20] MEDS ORDERED: ROCURONIUM BROMIDE 50MG/5ML VIAL As Ordered ONE (12:51)
[2023-07-20] MEDS ORDERED: fentaNYL 100 MCG/2 ML INJECTION As Ordered ONE (12:51)
[2023-07-20] MEDS ORDERED: MIDAZOLAM INJ 2MG/2ML VIAL As Ordered ONE (12:51)
[2023-07-20] MEDS ORDERED: LIDOCAINE 2% 100MG/5ML SDV (FOR ANES.) As Ordered ONE (12:51)
[2023-07-20] MEDS ORDERED: propofoL 200 MG/20 ML VIAL As Ordered ONE (12:51)
[2023-07-20] MEDS ORDERED: SUGAMMADEX SODIUM 500 MG/5 ML VIAL (BRIDION) As Ordered ONE (13:11)
[2023-07-20] MEDS ORDERED: ONDANSETRON 4MG 2ML VIAL As Ordered ONE (13:11)
[2023-07-20] MEDS ORDERED: KETOROLAC 60MG 2ML VIAL As Ordered ONE (13:11)
[2023-07-20] MEDS ORDERED: ONDANSETRON 4MG 2ML VIAL IV PRN (15:15)
[2023-07-20] MEDS ORDERED: fentaNYL 100 MCG/2 ML INJECTION IV PRN (15:15)
[2023-07-20 16:00] VITALS: BP 128/63; TEMP 98.1; O2SAT 97
[2023-07-20] MEDS ORDERED: CIPR-249 PO (16:42)
== END 2023-07-20 16:25 | disposition home or self-care (01) ==
LOC: M SDC 12:24
PROVIDERS: ATTEND Urology
DX: N40.1 Benign prostatic hyperplasia with lower urinary tract symptoms (principal); Z79.899 Other long term (current) drug therapy
CPT/HCPCS: 52601; J0690; J1100; J1885; J2250; J2405; J3010

== ENCOUNTER 2023-09-21 06:08 | Day surgery (SDC) | payer OTHER ==
[~2023-09-21] VITALS: Ht 177.8 cm; Wt 102.1 kg
[~2023-09-21 06:08] MED LIST changes: +CIPR-249 PO
[2023-09-21] MEDS ORDERED: LR 1,000 ML IV SCH ×2 (06:35→09:50)
[2023-09-21] MEDS ORDERED: fentaNYL 100 MCG/2 ML INJECTION As Ordered ONE (07:08)
[2023-09-21] MEDS ORDERED: propofoL 200 MG/20 ML VIAL As Ordered ONE ×2 (07:08→07:09)
[2023-09-21] MEDS ORDERED: GLYCOPYRROLATE INJ 0.2 MG/ML 2 ML VIAL As Ordered ONE (07:08)
[2023-09-21] MEDS ORDERED: LIDOCAINE 2% 100MG/5ML SDV (FOR ANES.) As Ordered ONE (07:08)
[2023-09-21] MEDS ORDERED: MIDAZOLAM INJ 2MG/2ML VIAL As Ordered ONE (07:09)
[2023-09-21] MEDS ORDERED: BACITRACIN OINTMENT 30GM TUBE As Ordered ONE (07:16)
[2023-09-21] MEDS ORDERED: PHENYLephrine 500MCG 5ML (100MCG/ML) SYRINGE As Ordered ONE (07:57)
[2023-09-21] MEDS ORDERED: ACETAMINOPHEN 1000MG 100ML IV BAG As Ordered ONE (08:04)
[2023-09-21] MEDS ORDERED: KETOROLAC 60MG 2ML VIAL As Ordered ONE (09:18)
[2023-09-21] MEDS ORDERED: ONDANSETRON 4MG 2ML VIAL As Ordered ONE (09:26)
[2023-09-21] MEDS ORDERED: ONDANSETRON 4MG 2ML VIAL IV PRN (09:50)
[2023-09-21] MEDS ORDERED: PERCOCET PO (10:07)
[2023-09-21] MEDS ORDERED: HYDROmorphone HCL 2MG/ML 1ML VIAL As Ordered ONE (10:10)
[2023-09-21] MEDS: HYDROMORPHONE HCL 0.5 MG/ 0.5 ML SYRINGE IV PRN ×4 (10:12→10:33)
[2023-09-21] MEDS: oxyCODONE 5MG TAB PO PRN ×2 (10:25→10:59)
[2023-09-21] MEDS: fentaNYL 100 MCG/2 ML INJECTION IV PRN ×2 (10:45→10:53)
== END 2023-09-21 11:40 | disposition home or self-care (01) ==
LOC: M SDC 06:08
PROVIDERS: ATTEND Orthopaedic Surgery Hand Surgery
DX: M18.11 Unilateral primary osteoarthritis of first carpometacarpal joint, right hand (principal); N40.0 Benign prostatic hyperplasia without lower urinary tract symptoms; R06.83 Snoring; Z79.899 Other long term (current) drug therapy; Z87.891 Personal history of nicotine dependence
CPT/HCPCS: 26841; 76000; J0131; J0665; J1170; J1885; J2250; J2371; J2405; J3010

== ENCOUNTER → 2023-09-30 | Outpatient (CLI) | payer OTHER ==
[~2023-09-30] MED LIST changes: +PERCOCET PO; -ceFAZolin SOD 2 GM in IV 1 EA IV ONE
== END ==
LOC: M SOG 07:56
PROVIDERS: ATTEND Physician Assistant
DX: M79.644 Pain in right finger(s) (principal)

== ENCOUNTER → 2023-10-31 | Outpatient (CLI) | payer OTHER | LOC: M SOG 08:00 | PROVIDERS: ATTEND Physician Assistant | DX: M79.641 Pain in right hand (principal); Z87.81 Personal history of (healed) traumatic fracture; S52.611K Displaced fracture of right ulna styloid process, subsequent encounter for closed fracture with nonunion; M19.041 Primary osteoarthritis, right hand; M19.031 Primary osteoarthritis, right wrist ==

== ENCOUNTER → 2023-12-02 | Outpatient (CLI) | payer OTHER | LOC: M SOG 09:37 | PROVIDERS: ATTEND Physician Assistant | DX: Z96.651 Presence of right artificial knee joint (principal) ==

== ENCOUNTER → 2023-12-05 | Outpatient (CLI) | payer OTHER | LOC: M SOG 08:00 | PROVIDERS: ATTEND Physician Assistant | DX: M79.644 Pain in right finger(s) (principal); Z98.890 Other specified postprocedural states ==

== ENCOUNTER → 2024-01-20 | Outpatient (CLI) | payer OTHER | LOC: M PLAIMG 15:04 | PROVIDERS: ATTEND Internal Medicine | DX: R05.9 Cough, unspecified (principal) ==

== ENCOUNTER → 2024-01-23 | Outpatient (CLI) | payer OTHER | LOC: M SOG 14:51 | PROVIDERS: ATTEND Physician Assistant | DX: M79.644 Pain in right finger(s) (principal); M24.641 Ankylosis, right hand; Z98.1 Arthrodesis status ==

== ENCOUNTER → 2024-06-13 | Outpatient (CLI) | payer OTHER ==
[~2024-06-13] MED LIST changes: +METHACHOLINE KIT (6 VIAL.NEB PREMIX) INH ONE
== END ==
LOC: M CARPUL 09:45
PROVIDERS: ATTEND Internal Medicine
DX: R05.3 Chronic cough (principal)
CPT/HCPCS: 94070; J7674

== ENCOUNTER → 2024-07-16 | Outpatient (CLI) | payer OTHER ==
[~2024-07-16] MED LIST changes: -METHACHOLINE KIT (6 VIAL.NEB PREMIX) INH ONE
[2024-07-16 14:35] LABS: BASO # 0.1 10^3/uL (0.0-0.2); BASO % 0.6 % (0.0-1.0); EOS # 0.3 10^3/uL (0.0-0.5); EOS % 2.7 % (0.0-3.0); HEMATOCRIT 43.9 % (42.0-52.0); HEMOGLOBIN 15.6 g/dl (13.5-17.5); LYMPH # 2.7 10^3/uL (1.5-5.0); LYMPH % 28.3 % (24.0-44.0); MEAN CORPUSCULAR HGB CONC 35.5 g/dl (32.0-36.5); MEAN CORPUSCULAR VOLUME 87.1 fl (80.0-96.0); MONO # 0.7 10^3/uL (0.0-0.8); MONO % 6.8 % (2.0-8.0); NEUTROPHILS # 5.9 10^3/uL (1.5-8.5); NEUTROPHILS % 60.9 % (36.0-66.0); PLATELET COUNT, AUTOMATED 246 10^3/uL (150-450); RED BLOOD COUNT 5.04 10^6/uL (4.30-6.10); WHITE BLOOD COUNT 9.7 10^3/uL (4.0-10.0)
[2024-07-16 14:47] LABS: INR 1.07; PARTIAL THROMBOPLASTIN TIME 34.8 SECONDS (24.8-34.2); PROTHROMBIN TIME 13.6 SECONDS (12.5-14.5)
[2024-07-16 14:56] LABS: BLOOD UREA NITROGEN 13 MG/DL (9-23); CARBON DIOXIDE LEVEL 27 MMOL/L (20-31); CHLORIDE LEVEL 107 MMOL/L (98-107); CREATININE FOR GFR 0.93 MG/DL (0.70-1.30); GLOMERULAR FILTRATION RATE > 60.0 (>49); GLUCOSE, FASTING 84 MG/DL (74-106); POTASSIUM SERUM 3.5 MMOL/L (3.5-5.1); SODIUM LEVEL 139 MMOL/L (136-145)
== END ==
LOC: M LAB 13:44
PROVIDERS: ATTEND Physician Assistant
DX: Z01.818 Encounter for other preprocedural examination (principal); R94.31 Abnormal electrocardiogram [ECG] [EKG]

== ENCOUNTER → 2024-07-26 | Outpatient (REF) | payer OTHER | LOC: M LAB REF 16:06 | PROVIDERS: ATTEND Surgery | DX: D03.62 Melanoma in situ of left upper limb, including shoulder (principal) ==

== ENCOUNTER → 2024-08-23 | Outpatient (REF) | payer OTHER | LOC: M LAB REF 16:08 | PROVIDERS: ATTEND Surgery | DX: C44.719 Basal cell carcinoma of skin of left lower limb, including hip (principal) ==

== ENCOUNTER → 2024-09-14 | Outpatient (CLI) | payer OTHER | LOC: M RAD 12:37 | PROVIDERS: ATTEND Internal Medicine Pulmonary Disease | DX: R05.9 Cough, unspecified (principal); R91.1 Solitary pulmonary nodule ==

== ENCOUNTER → 2025-01-22 | Outpatient (REF) | payer MEDICARE ==
[2025-01-23 13:33] LABS: LDL DIRECT 92 mg/dL (<100)
== END ==
LOC: M LAB REF 12:01
PROVIDERS: ATTEND Internal Medicine
DX: E78.2 Mixed hyperlipidemia (principal)